=== PATIENT | female | born 1935 | race Asian ===

== ENCOUNTER 2018-11-09 21:19 | Inpatient (IN) | payer MEDICARE, OTHER ==
[~2018-11-09] VITALS: Ht 154.9 cm; Wt 41.7 kg
[~2018-11-09 21:19] MED LIST: POTASSIUM99 M3 PO; SEROQUEL50 MG ORAL; ZANTAC150 MG ORAL
[2018-11-09] MEDS ORDERED: NS 250 ML IV ONE (22:04)
--- NOTE | 2018-11-09 22:10 | NUR ---
ER Nurse Note: Pt BIBA 3 from home c/o ALOC, more altered than normal after dialysis. Patient is normally able to carry a conversation and able to walk. Since 1999 patient is non verbal and unable to get out of bed. BS 150. Patient had dialysis; BP became low on site. Pt a&ox0 but able to follow commands, and pain. BP on admission was 88/45, unable to talk, no skin breakdown. ERMD at pt side, will continue to monitor.
[2018-11-09 22:27] VITALS: BP 98/56
[2018-11-09 22:48] LABS: BASOPHILS % (AUTO) 1.1 % (0.0-2.0); EOSINOPHILS % (AUTO) 0.7 % (0.0-3.0); HEMATOCRIT 43.6 % (37.0-47.0); HEMOGLOBIN 13.5 G/DL (12.0-16.0); LYMPHOCYTES % (AUTO) 10.6 % (20.0-45.0); MEAN CORPUSCULAR VOLUME 106 FL (80-99); NEUTROPHILS % (AUTO) 76.6 % (45.0-75.0); PLATELET COUNT 104 K/UL (150-450); RED BLOOD COUNT 4.11 M/UL (4.20-5.40); RED CELL DISTRIBUTION WIDTH 17.5 % (11.6-14.8); WHITE BLOOD COUNT 6.8 K/UL (4.8-10.8)
[2018-11-09 22:50] VITALS: BP 110/64
[2018-11-09 22:53] LABS: ANION GAP 9 mmol/L (5-15); BLOOD UREA NITROGEN 44 mg/dL (7-18); CALCIUM 8.6 MG/DL (8.5-10.1); CARBON DIOXIDE 29 MMOL/L (21-32); CHLORIDE 97 MMOL/L (98-107); CREATININE 2.3 MG/DL (0.55-1.30); POTASSIUM 4.5 MMOL/L (3.5-5.1); SODIUM 135 MMOL/L (136-145)
[2018-11-09 23:08] LABS: ALBUMIN 2.7 G/DL (3.4-5.0); ALBUMIN/GLOBULIN RATIO 0.5 (1.0-2.7); ALKALINE PHOSPHATASE 252 U/L (46-116); ASPARTATE AMINO TRANSFERASE 20 U/L (15-37); BILIRUBIN,TOTAL 0.6 MG/DL (0.2-1.0); CREATINE KINASE 37 U/L (26-308)
[2018-11-09 23:30] LABS: ALANINE AMINOTRANSFERASE 5 U/L (12-78); CKMB 0.5 NG/ML (0.0-3.6)
--- NOTE | 2018-11-09 23:36 | NUR ---
ER Nurse Note: Family at bedside and primary nurse was informed pt is DNR. ERMD aware; will talk to family. Per family, family does not want a waldrop cath inserted; aware. Pt VSS, no signs of distress. All orders completed per ERMD orders. No skin breakdown. Will continue to montior..
[2018-11-09 23:50] VITALS: BP 102/58
[2018-11-10] VITALS (7 sets, daily range): BP systolic 90–148; BP diastolic 42–62
--- NOTE | 2018-11-10 01:30 | NUR ---
ER Nurse Note: Report given to DONNA Duarte in [place] for continuity of care. Pt VSS, no signs of distress, belongings given to family.
--- NOTE | 2018-11-10 02:20 | NUR ---
NURSE NOTES: Admitted patient awake,follows simple command,relatives at bedside.Admitting orders from Dr Mirza being carried out.
--- NOTE | 2018-11-10 02:41 | Emergency Room Report ---
History of Present Illness General Chief Complaint: Altered Mental Status Source: Patient Present Illness HPI 83-year-old female presents ED for evaluation. Brought in by EMS from home. Per family patient is more altered than baseline 1 day. History of dementia. Patient also has history of end-stage renal disease on dialysis. Had Dialysis Today. Upon arrival patient showing no signs of distress. Unable to provide any additional history at this time. Family at bedside states that patient is DO NOT RESUSCITATE, selective treatment. Normally goes [facility]. No other aggravating relieving factors. Denies any other associated symptoms Allergies: Coded Allergies: No Known Allergies (Unverified , 11/09/18) Patient History Past Medical History: GERD, dementia, psych hx, renal disease, dialysis Pertinent Family History: none Social History: Denies: smoking, alcohol use, drug use Last Menstrual Period: CHRIS Now: No Immunizations: UTD Reviewed Nursing Documentation: PMH: Agreed; PSxH: Agreed Nursing Documentation-PMH Past Medical History: No History, Except For Hx Gastrointestinal Problems: Yes - acid reflux, renal failure Hx Dialysis: Yes - M W F Hx Neurological Problems: Yes - dementia, anxiety Review of Systems All Other Systems: limited Physical Exam Vital Signs Date Time Temp Pulse Resp B/P (MAP) Pulse Ox O2 Delivery O2 Flow Rate FiO2 11/09/18 21:12 97.9 89 16 98/56 94 Room Air Sp02 EP Interpretation: reviewed, normal General Appearance: no apparent distress, GCS 15, non-toxic, lethargic Head: normocephalic Eyes: bilateral eye normal inspection, bilateral eye PERRL ENT: normal ENT inspection Neck: normal inspection Respiratory: chest non-tender, lungs clear, normal breath sounds, speaking full sentences Cardiovascular #1: regular rate, rhythm, no edema Gastrointestinal: normal bowel sounds, non tender, soft, non-distended, no guarding, no rebound Rectal: deferred Genitourinary: no CVA tenderness Musculoskeletal: normal inspection Neurologic: other - lethargic Psychiatric: other - lethargic Skin: normal inspection Lymphatic: normal inspection Medical Decision Making Diagnostic Impression: Primary Impression: ESRD (end stage renal disease) Additional Impression: Altered mental status Qualified Codes: R41.82 - Altered mental status, unspecified ER Course Hospital Course 83-year-old female presenting to ED with generalized weakness, hypotensive after dialysis Differential diagnoses include: Pneumonia, UTI, sepsis, dehydration, KS/ unstable angina Clinical course Patient placed on stretcher. 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 After initial history and physical, I ordered labs, IV fluids, EKG, chest x-ray, blood cultures, UA. Labs - BUN/Cr elevated, no leukocytosis, troponins negative EKG - NSR, no acute ischemic changes interpreted by me CXR - R sided effusion ? PNA Abx given. After small fluid bolus blood pressure improved. Family is at bedside and declined Zapata catheter for urine. Family provided documentation showing that patient is DO NOT RESUSCITATE, selective treatment Case discussed with Dr Mirza and they agreed to admit patient to their service for further care and support I feel this is a highly complex case requiring extensive working including EKG/ Rhythm strip, Xray/CT/US, Blood/urine lab work, repeat exams while in ED, and administration of strong opiates/narcotics for pain control, admission to hospital or close patient follow up. Diagnosis - ESRD on dialysis, AMS Patient admitted to floor in serious condition Labs Test 11/09/18 22:20 11/10/18 00:00 White Blood Count 6.8 K/UL (4.8-10.8) Red Blood Count 4.11 M/UL (4.20-5.40) Hemoglobin 13.5 G/DL (12.0-16.0) Hematocrit 43.6 % (37.0-47.0) Mean Corpuscular Volume 106 FL (80-99) Mean Corpuscular Hemoglobin 32.8 PG (27.0-31.0) Mean Corpuscular Hemoglobin Concent 30.9 G/DL (32.0-36.0) Red Cell Distribution Width 17.5 % (11.6-14.8) Platelet Count 104 K/UL (150-450) Mean Platelet Volume 6.2 FL (6.5-10.1) Neutrophils (%) (Auto) 76.6 % (45.0-75.0) Lymphocytes (%) (Auto) 10.6 % (20.0-45.0) Monocytes (%) (Auto) 11.0 % (1.0-10.0) Eosinophils (%) (Auto) 0.7 % (0.0-3.0) Basophils (%) (Auto) 1.1 % (0.0-2.0) Sodium Level 135 MMOL/L (136-145) Potassium Level 4.5 MMOL/L (3.5-5.1) Chloride Level 97 MMOL/L (98-107) Carbon Dioxide Level 29 MMOL/L (21-32) Anion Gap 9 mmol/L (5-15) Blood Urea Nitrogen 44 mg/dL (7-18) Creatinine 2.3 MG/DL (0.55-1.30) Estimat Glomerular Filtration Rate mL/min (>60) Glucose Level 121 MG/DL (74-106) Calcium Level 8.6 MG/DL (8.5-10.1) Total Bilirubin 0.6 MG/DL (0.2-1.0) Aspartate Amino Transf (AST/SGOT) 20 U/L (15-37) Alanine Aminotransferase (ALT/SGPT) 5 U/L (12-78) Alkaline Phosphatase 252 U/L (46-116) Total Creatine Kinase 37 U/L (26-308) Creatine Kinase MB 0.5 NG/ML (0.0-3.6) Creatine Kinase MB Relative Index 1.3 Troponin I 0.016 ng/mL (0.000-0.056) Pro-B-Type Natriuretic Peptide 91802 pg/mL (0-125) Total Protein 8.4 G/DL (6.4-8.2) Albumin 2.7 G/DL (3.4-5.0) Globulin 5.7 g/dL Albumin/Globulin Ratio 0.5 (1.0-2.7) Lactic Acid Level 1.70 mmol/L (0.4-2.0) EKG Diagnostic Results Rate: normal Rhythm: NSR ST Segments: no acute changes ASA given to the pt in ED: No Rhythm Strip Diag. Results EP Interpretation: yes Rhythm: NSR, no PVC's, no ectopy Chest X-Ray Diagnostic Results Chest X-Ray Diagnostic Results : Chest X-Ray Ordered: Yes # of Views/Limited/Complete: 1 View Indication: Other EP Interpretation: Yes Interpretation: no pneumothorax, other - R sided effusion Impression: Other - PNA/effusion Electronically Signed by: Electronically signed by Alberto Adames MD CT/MRI/US Diagnostic Results CT/MRI/US Diagnostic Results : Imaging Test Ordered: CT Head Impression old infarcts, no acute process Last Vital Signs Date Time Temp Pulse Resp B/P (MAP) Pulse Ox O2 Delivery O2 Flow Rate FiO2 11/10/18 00:50 97.7 75 18 116/62 99 Room Air Status: improved Disposition: ADMITTED INPATIENT Condition: Serious Referrals: JOYCE REDD MD (PCP) Alberto Adames MD Nov 10, 2018 02:41
[2018-11-10] MEDS: D5NS 1,000 ML IV SCH ×2 (03:37→21:38)
--- NOTE | 2018-11-10 07:27 | NUR ---
HAND-OFF: Report given to Giovanni Morris RN.
--- NOTE | 2018-11-10 08:02 | NUR ---
NURSE NOTES: Received patient from Chelita RN, patient is resting in bed, comfortable, call light within reach, bed is locked and in lowest position, no distress noted, will continue to monitor.
[2018-11-10] MEDS: Pantoprazole Inj IVP SCH (08:36)
[2018-11-10] MEDS: Donepezil 10mg tab ORAL SCH (08:36)
[2018-11-10] MEDS: Allopurinol 100mg Tab ORAL SCH (08:37)
--- NOTE | 2018-11-10 08:48 | History & Physical ---
History and Physical History & Physicial seen and examined. Full Dictation completed on 8:45 Priscilla Mirza MD Nov 10, 2018 08:48
--- NOTE | 2018-11-10 08:49 | General Progress Note ---
Assessment/Plan Assessment/Plan S, O: patient is lethargic, in no distress. Limited evaluation PHYSICAL EXAMINATION: HEENT: Atraumatic and normocephalic. CHEST: Diffuse bronchial breathing sounds. HEART: S1 and S2. Regular rate and rhythm. ABDOMEN: Soft. No organomegaly. MUSCULOSKELETAL: Atrophied musculature. NEUROLOGY: The patient is awake, alert, and oriented x1/2. LABORATORY DATA: Dated November 09, 2018 shows WBC 6.8, ASSESSMENT AND PLAN: 1. Acute encephalopathy. 2. Bilateral pulmonary effusion-bilateral pleural effusion. 3. End-stage renal disease, on hemodialysis. 4. Hyponatremia. 5. Thrombocytopenia. 6. Cachexia/severe malnourishement. 7. GI and DVT prophylaxis. PLAN OF CARE: 1- HD per Nephrology 2- Current management Subjective Allergies: Coded Allergies: No Known Allergies (Unverified , 11/09/18) Objective Last 24 Hour Vital Signs Date Time Temp Pulse Resp B/P (MAP) Pulse Ox O2 Delivery O2 Flow Rate FiO2 11/10/18 04:00 97.3 74 18 107/48 (67) 95 11/10/18 03:01 Room Air 11/10/18 01:30 97.5 80 18 90/42 91 Room Air 11/10/18 01:30 97.5 80 18 90/42 (58) 91 11/10/18 00:50 97.7 75 18 116/62 99 Room Air 11/09/18 23:50 78 16 102/58 96 Room Air 11/09/18 22:50 80 17 110/64 96 Room Air 11/09/18 22:27 97.9 81 16 98/56 94 Room Air 11/09/18 22:27 89 16 Room Air 11/09/18 21:12 97.9 89 16 98/56 94 Room Air Intake and Output 11/09/18 11/10/18 19:00 07:00 Intake Total 400 ml Balance 400 ml Intake IV Total 400 ml Laboratory Tests 11/09/18 22:20: White Blood Count 6.8, Red Blood Count 4.11L, Hemoglobin 13.5, Hematocrit 43.6, Mean Corpuscular Volume 106H, Mean Corpuscular Hemoglobin 32.8H, Mean Corpuscular Hemoglobin Concent 30.9L, Red Cell Distribution Width 17.5H, Platelet Count 104L, Mean Platelet Volume 6.2L, Neutrophils (%) (Auto) 76.6H, Lymphocytes (%) (Auto) 10.6L, Monocytes (%) (Auto) 11.0H, Eosinophils (%) (Auto ) 0.7, Basophils (%) (Auto) 1.1, Sodium Level 135L, Potassium Level 4.5, Chloride Level 97L, Carbon Dioxide Level 29, Anion Gap 9, Blood Urea Nitrogen 44H, Creatinine 2.3H, Estimat Glomerular Filtration Rate , Glucose Level 121H, Calcium Level 8.6, Total Bilirubin 0.6, Aspartate Amino Transf (AST/SGOT) 20, Alanine Aminotransferase (ALT/SGPT) 5L, Alkaline Phosphatase 252H, Total Creatine Kinase 37, Creatine Kinase MB 0.5, Creatine Kinase MB Relative Index 1.3, Troponin I 0.016, Pro-B-Type Natriuretic Peptide 73025C, Total Protein 8.4H , Albumin 2.7L, Globulin 5.7, Albumin/Globulin Ratio 0.5L 11/10/18 00:00: Lactic Acid Level 1.70 Height (Feet): 5 Height (Inches): 1.00 Weight (Pounds): 102 Priscilla Mirza MD Nov 10, 2018 08:49
[2018-11-10] MEDS ORDERED: Memantine 10mg tab ORAL SCH (09:00)
--- NOTE | 2018-11-10 11:55 | Diagnostic Imaging Report ---
Indications: Altered mental status Technique: Spiral acquisitions obtained through the brain. Angled axial and coronal 5 x 5 mm slices were reconstructed. Total dose length product 1414.7 mGycm. CTDI vol(s) 70.38 mGy. Dose reduction achieved using automated exposure control Comparison: None. Findings: There is marked age-related enlargement of the ventricles and extra axial CSF spaces. There is considerable periventricular deep white matter low-attenuation, consistent with chronic ischemic changes. There are bilateral basal ganglia old lacunar infarcts demonstrated. No acute intracranial hemorrhage or edema. No mass effect. No midline shift. Visualized orbits are unremarkable. The sinuses and mastoids are clear. The calvarium is intact. Impression: Chronic and age-related changes Negative for acute intracranial bleed or mass effect This agrees with the preliminary interpretation provided overnight by [facility] teleradiology service. The CT scanner at [facility] is accredited by the [employer] and the scans are performed using protocols designed to limit radiation exposure to as low as reasonably achievable to attain images of sufficient resolution adequate for diagnostic evaluation.
--- NOTE | 2018-11-10 13:10 | Consultation ---
History of Present Illness General Chief Complaint: Altered Mental Status Present Illness HPI 83-year-old female with hx of mmp and dementia with behavioral dist presents ED for evaluation. the pt has been behavioral issues and getting agitated. the pt daughter stated that since she has placed on seroquel the pt is doing better. the pt has waxing and waning of consciousness. the pt has memory impairment. Allergies: Coded Allergies: No Known Allergies (Unverified , 11/09/18) Medication History Scheduled Quetiapine Fumarate (Seroquel), Unknown Dose ORAL DAILY, (Reported) Ranitidine Hcl* (Zantac*), Unknown Dose ORAL DAILY, (Reported) Miscellaneous Medications Potassium Gluconate (Potassium), Unknown Dose PO, (Reported) Patient History Limited by: medical condition History Provided By: Family Member, Medical Record, PMD Healthcare decision maker Tasha Maxwell Resuscitation status Do Not Resuscitate Advanced Directive on File No Past Medical/Surgical History Past Medical/Surgical History: (1) ESRD (end stage renal disease) (2) Altered mental status (3) Dementia with behavioral disturbance (4) Acute metabolic encephalopathy Review of Systems Psychiatric: Reports: emotional problems, hallucinations Physical Exam General Appearance: no apparent distress, lethargic - waxing and waning Neurologic: disoriented, depressed affect Last 24 Hour Vital Signs Date Time Temp Pulse Resp B/P (MAP) Pulse Ox O2 Delivery O2 Flow Rate FiO2 11/10/18 12:00 98.6 71 20 114/53 (73) 99 11/10/18 08:00 97.3 71 18 110/50 (70) 100 11/10/18 08:00 Room Air 11/10/18 04:00 97.3 74 18 107/48 (67) 95 11/10/18 03:01 Room Air 11/10/18 01:30 97.5 80 18 90/42 91 Room Air 11/10/18 01:30 97.5 80 18 90/42 (58) 91 11/10/18 00:50 97.7 75 18 116/62 99 Room Air 11/09/18 23:50 78 16 102/58 96 Room Air 11/09/18 22:50 80 17 110/64 96 Room Air 11/09/18 22:27 97.9 81 16 98/56 94 Room Air 11/09/18 22:27 89 16 Room Air 11/09/18 21:12 97.9 89 16 98/56 94 Room Air Intake and Output 11/09/18 11/10/18 19:00 07:00 Intake Total 400 ml Balance 400 ml Intake IV Total 400 ml Laboratory Tests Test 11/09/18 22:20 11/10/18 00:00 White Blood Count 6.8 K/UL (4.8-10.8) Red Blood Count 4.11 M/UL (4.20-5.40) L Hemoglobin 13.5 G/DL (12.0-16.0) Hematocrit 43.6 % (37.0-47.0) Mean Corpuscular Volume 106 FL (80-99) H Mean Corpuscular Hemoglobin 32.8 PG (27.0-31.0) H Mean Corpuscular Hemoglobin Concent 30.9 G/DL (32.0-36.0) L Red Cell Distribution Width 17.5 % (11.6-14.8) H Platelet Count 104 K/UL (150-450) L Mean Platelet Volume 6.2 FL (6.5-10.1) L Neutrophils (%) (Auto) 76.6 % (45.0-75.0) H Lymphocytes (%) (Auto) 10.6 % (20.0-45.0) L Monocytes (%) (Auto) 11.0 % (1.0-10.0) H Eosinophils (%) (Auto) 0.7 % (0.0-3.0) Basophils (%) (Auto) 1.1 % (0.0-2.0) Sodium Level 135 MMOL/L (136-145) L Potassium Level 4.5 MMOL/L (3.5-5.1) Chloride Level 97 MMOL/L (98-107) L Carbon Dioxide Level 29 MMOL/L (21-32) Anion Gap 9 mmol/L (5-15) Blood Urea Nitrogen 44 mg/dL (7-18) H Creatinine 2.3 MG/DL (0.55-1.30) H Estimat Glomerular Filtration Rate mL/min (>60) Glucose Level 121 MG/DL (74-106) H Calcium Level 8.6 MG/DL (8.5-10.1) Total Bilirubin 0.6 MG/DL (0.2-1.0) Aspartate Amino Transf (AST/SGOT) 20 U/L (15-37) Alanine Aminotransferase (ALT/SGPT) 5 U/L (12-78) L Alkaline Phosphatase 252 U/L (46-116) H Total Creatine Kinase 37 U/L (26-308) Creatine Kinase MB 0.5 NG/ML (0.0-3.6) Creatine Kinase MB Relative Index 1.3 Troponin I 0.016 ng/mL (0.000-0.056) Pro-B-Type Natriuretic Peptide 79001 pg/mL (0-125) H Total Protein 8.4 G/DL (6.4-8.2) H Albumin 2.7 G/DL (3.4-5.0) L Globulin 5.7 g/dL Albumin/Globulin Ratio 0.5 (1.0-2.7) L Lactic Acid Level 1.70 mmol/L (0.4-2.0) Height (Feet): 5 Height (Inches): 1.00 Weight (Pounds): 102 Medications Current Medications Medications (Trade) Dose Ordered Sig/Ritika Route PRN Reason Start Time Stop Time Status Last Admin Dose Admin Acetaminophen (Tylenol) 650 mg Q4H PRN ORAL Mild Pain/Temp > 100.5 11/10/18 02:30 12/10/18 02:29 Allopurinol (Zyloprim) 100 mg SuTuThSa@0900 ORAL 11/10/18 09:00 12/10/18 08:59 Cinacalcet (Sensipar) 30 mg QHS ORAL 11/10/18 21:00 12/10/18 20:59 Dextrose/Sodium Chloride 1,000 ml @ 50 mls/hr Q20H IV 11/10/18 02:30 12/10/18 02:29 11/10/18 03:37 Donepezil HCl (Aricept) 10 mg SuTuThSa@0900 ORAL 11/10/18 09:00 12/10/18 08:59 EZETIMIBE (Zetia) 10 mg SuTuThSa@0900 ORAL 11/10/18 09:00 12/10/18 08:59 Levofloxacin 100 ml @ 100 mls/hr Q48H IVPB 11/12/18 00:30 11/19/18 00:29 Memantine (Namenda) 10 mg SuTuThSa@0900,1800 ORAL 11/10/18 09:00 12/10/18 08:59 Ondansetron HCl (Zofran) 4 mg Q6H PRN IVP Nausea & Vomiting 11/10/18 02:30 12/10/18 02:29 Pantoprazole (Protonix) 40 mg DAILY IVP 11/10/18 09:00 12/10/18 08:59 11/10/18 08:36 Quetiapine Fumarate (SEROquel) 25 mg QHS ORAL 11/10/18 21:00 12/10/18 20:59 Sertraline HCl (Zoloft) 50 mg MON-WED-WED ORAL 11/11/18 21:00 12/11/18 20:59 Assessment/Plan Problem List: (1) Dementia with behavioral disturbance ICD Codes: F03.91 - Unspecified dementia with behavioral disturbance SNOMED: 1733700277434 (2) Acute metabolic encephalopathy ICD Codes: G93.41 - Metabolic encephalopathy SNOMED: 70896735, [id number] Status: unchanged Assessment/Plan seroquel 25mg po qhs Zoloft 50mg po qam hold seroquel if the pt is lethargic dw both daughters in the room Nabor Stone MD Nov 10, 2018 13:10
--- NOTE | 2018-11-10 13:37 | Diagnostic Imaging Report ---
Indication: Altered mental status Technique: One view of the chest Comparison: none Findings: Hazy opacity of the right hemithorax likely reflects a pleural effusion. There may be some parenchymal consolidation as well. The left lung and pleural space are clear. The heart size is upper limits normal. The aorta is evaluated tortuous and calcified. Impression: Right-sided hazy opacity, likely pleural fluid, and/or parenchymal infiltrate. Correlate with clinical findings This agrees with the preliminary interpretation provided by the emergency room physician
--- NOTE | 2018-11-10 15:24 | NUR ---
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 97.9 HR 89 RR 16 B/P 98/56 BUN 44 CR 2.3 ALK PHOS 252 BNP 59582 CXR= RIGHT SIDED HAZY OPACITIES,PLEURAL FLUID LIKELY PARENCHYMAL INFILTRATES CT HEAD=NO ACUTE CHANGES IS: IV BOLUS NS X 250ML ADMITTED TO MED/SURG@ 0130 MED/SURG STATUS DCP RETURN HOME
--- NOTE | 2018-11-10 15:43 | Consultation ---
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 reason for hospitalization was unresponsiveness and low [place] ER: 83-year-old female presents ED for evaluation. Brought in by EMS from home. Per family patient is more altered than baseline 1 day. History of dementia. Patient also has history of end-stage renal disease on dialysis. Had Dialysis Today. Upon arrival patient showing no signs of distress. Unable to provide any additional history at this time. Family at bedside states that patient is DO NOT RESUSCITATE, selective treatment. Normally goes to [facility]. No other aggravating relieving factors. Denies any other associated symptoms Assessment/Plan ESRD M W Fr dialysis- 12 years on dialysis - has left arm fistula Encephalopathy Right basal lung pathology ? Aspiration Muscles wasted DNR Sugg: minimize or stop all mind altering meds as possible observe BP off dialysis slow hydrate 2D echo pulmonary toilet St eval discussed with Sukumar Tobias MD Nov 10, 2018 15:43
--- NOTE | 2018-11-10 16:00 | History and Physical Report ---
DATE OF ADMISSION: 11/09/2018 SOURCE OF INFORMATION: The patient and EMR. HISTORY OF PRESENT ILLNESS: The patient is a pleasant 83-year-old female with the history of end-stage renal disease. The patient presented with worsening of shortness of breath and being less responsive to the emergency room. Initial vital signs shows the low blood pressure. The patient has completed her scheduled hemodialysis sessions successfully. However, with no improvement presented to the emergency room. At the time of evaluation, the patient is delirious. However denies any nausea, vomiting, diarrhea, or constipation. There is no report of seizure activity or any abnormal bleeding. REVIEW OF SYSTEMS: All 14 elements of review of systems reviewed. Pertinent positives and negatives elements reviewed as above. ALLERGIES: NKDA. PAST SURGICAL HISTORY: Left upper arm AV/graft placement. PAST MEDICAL HISTORY: Including but not limited to hypertension, end-stage renal disease, psychiatric disorder. MEDICATIONS: Current hospital medications including Seroquel, sertraline, Namenda, Zetia, allopurinol. FAMILY HISTORY: Reviewed and noncontributory. SOCIAL HISTORY: The patient has three children. Roxie is the daughter with the power of corporate associate attorney. No reported alcohol abuse, illicit drug abuse, or smoking reported. IMAGING: Pending. PHYSICAL EXAMINATION: VITAL SIGNS: Blood pressure 100/60, temperature 98.2, pulse oximetry 94% on room air, respiratory rate 18. HEENT: Atraumatic and normocephalic. CHEST: Diffuse bronchial breathing sounds. HEART: S1 and S2. Regular rate and rhythm. ABDOMEN: Soft. No organomegaly. MUSCULOSKELETAL: Atrophied musculature. NEUROLOGY: The patient is awake, alert, and oriented x1/2. LABORATORY DATA: Dated November 09, 2018 shows WBC 6.8, hemoglobin of 13.5, platelet count of 104. Sodium 135, potassium 4.5, BUN , creatinine 2.3. AST and ALT of . BNP of 2100. ASSESSMENT AND PLAN: 1. Acute encephalopathy. 2. Bilateral pulmonary effusion-bilateral pleural effusion. 3. End-stage renal disease, on hemodialysis. 4. Hyponatremia. 5. Thrombocytopenia. 6. Cachexia/severe malnourishement. 7. GI and DVT prophylaxis. PLAN OF CARE: I will stop antipsychotic medications/sedatives. We will follow up with the neuro check on a q.4 basis. The case was discussed with the family at the bedside in detail. The patient's family requested hospice. However, I provided information and deferred that decisions after discussing with the power of the corporate associate attorney. Time of this dictation does not reflect the actual time of encounter. Priscilla Mirza M.D. DR: Tremaine JOB#: [id number] CC:
--- NOTE | 2018-11-10 16:02 | NUR ---
NURSE NOTES: RN received telephone orders from Dr. Mirza that patient should not be on Namenda or seroquel, orders discontinued per doctor order.
--- NOTE | 2018-11-10 18:56 | NUR ---
HAND-OFF: Report given to Chelita THOMPSON.NURSE NOTES:
--- NOTE | 2018-11-10 19:38 | NUR ---
NURSE NOTES: Received patient awake,resting in bed,no complaints,follows simple command,relatives at bedside.
[2018-11-10] MEDS: Sensipar 30mg Tab ORAL SCH (20:47)
[2018-11-11] VITALS: BP 132/64
[2018-11-11 03:44] VITALS: BP 147/61
--- NOTE | 2018-11-11 07:00 | NUR ---
HAND-OFF: Report given to Giovanni Morris RN.
--- NOTE | 2018-11-11 07:20 | NUR ---
NURSE NOTES: received patient from Chelita RN, patient is resting in bed and is more alert than yesterday, awaiting swallow evaluation, family at bedside, no distress noted, bed is locked and in lowest position, call light within reach, will continue to monitor.
[2018-11-11 08:00] VITALS: BP 140/77
[2018-11-11] MEDS: Pantoprazole Inj IVP SCH (08:49)
[2018-11-11 09:01] LABS: BASOPHILS % (AUTO) 0.9 % (0.0-2.0); EOSINOPHILS % (AUTO) 5.3 % (0.0-3.0); HEMATOCRIT 37.2 % (37.0-47.0); HEMOGLOBIN 11.4 G/DL (12.0-16.0); LYMPHOCYTES % (AUTO) 15.8 % (20.0-45.0); MEAN CORPUSCULAR VOLUME 105 FL (80-99); MONOCYTES % (AUTO) 9.2 % (1.0-10.0); NEUTROPHILS % (AUTO) 68.8 % (45.0-75.0); PLATELET COUNT 109 K/UL (150-450); RED BLOOD COUNT 3.53 M/UL (4.20-5.40); RED CELL DISTRIBUTION WIDTH 17.3 % (11.6-14.8); WHITE BLOOD COUNT 4.6 K/UL (4.8-10.8)
[2018-11-11 09:19] LABS: AMMONIA 16 umol/L (11-32)
[2018-11-11 09:36] LABS: ALANINE AMINOTRANSFERASE < 6 U/L (12-78); ALBUMIN 2.3 G/DL (3.4-5.0); ALBUMIN/GLOBULIN RATIO 0.4 (1.0-2.7); ALKALINE PHOSPHATASE 210 U/L (46-116); ANION GAP 7 mmol/L (5-15); ASPARTATE AMINO TRANSFERASE 15 U/L (15-37); BILIRUBIN,TOTAL 0.7 MG/DL (0.2-1.0); BLOOD UREA NITROGEN 63 mg/dL (7-18); CALCIUM 8.7 MG/DL (8.5-10.1); CARBON DIOXIDE 27 MMOL/L (21-32); CHLORIDE 104 MMOL/L (98-107); CHOLESTEROL 106 MG/DL (< 200); CREATINE KINASE 15 U/L (26-308); CREATININE 3.8 MG/DL (0.55-1.30); FERRITIN 1205 NG/ML (8-388); GAMMA GLUTAMYL TRANSPEPTIDASE 34 U/L (5-85); HDL CHOLESTEROL 43 MG/DL (40-60); PHOSPHORUS 3.2 MG/DL (2.5-4.9); POTASSIUM 4.4 MMOL/L (3.5-5.1); SODIUM 138 MMOL/L (136-145); TRIGLYCERIDES 77 MG/DL (30-150)
[2018-11-11 09:56] LABS: % IRON SATURATION 27 % (15-50); IRON 26 ug/dL (50-175); TOTAL IRON BINDING CAPACITY 95 ug/dL (250-450)
--- NOTE | 2018-11-11 10:15 | NUR ---
ST NOTE: BEDSIDE SWALLOW EVAL RECEIVED BEDSIDE SWALLOW EVAL CHART REVIEWED PRIOR THE EVALUATION PT IS A 83-YEAR-OLD FEMALE WHO WAS ADMITTED DUE TO AMS AND ESRD. 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 PER CXR: R-SIDED HAZY OPACITY, LIKELY PLEURAL FLUID, AND/OR PARENCHYMAL INFILTRATE. PLOF: PT LIVES AT HOME W/FAMILY. PER PT'S POLST: DNR, SELECTIVE TX, OKAY FOR LONG-TERM ARTIFICIAL NUTRITION, INCLUDING FEEDING TUBES. HOWEVER, WHEN DISCUSSED WITH PT'S DAUGHTER, RE: TUBE FEEDING. PER DAUGHTER, NO ARTIFICIAL NUTRITION, INCLUDING FEEDING TUBES PER PT'S DAUGHTER, VIDEOSWALLOW STUDY WAS COMPLETED AT [facility] A YEAR AGO(10/2017). NO ASPIRATION WAS NOTED BUT HAS HIGH RISK. DIET RECOMMENDED MECH SOFT(CHOPPED) WITH NECTAR THICK LIQUIDS, OKAY TO ALTERNATE WITH THIN LIQUIDS VIA TSP ONLY. CURRENT STATUS: PT SEEN AT BEDSIDE IN AM. ALERT, COOPERATIVE, FOLLOWS SIMPLE DIRECTIONS, PT'S DAUGHTERS ARE ON THE BEDSIDE. PER PT'S DAUGHTER, PT HAS BEEN COUGHING DURING MEALTIME. GIVEN PO TRIALS: THIN(TSP), NECTAR THICK(TSPX2) AND PUREE(1/2 TSP) INITIAL IMPRESSION: PROBABLE MODERATE OR WORSENED OROPHARYNGEAL DYSPHAGIA PT HAS UPPER AND LOWER DENTURES. MILD TO MODERATE ORAL TRANSIT TIME AND OROPHARYNGEAL TRANSIT TIME, WEAK AND SLOW LARYNGEAL ELEVATION, DELAYED COUGH WAS NOTED WITH PUREED. HAS HIGH (SILENT) ASPIRATION RISK DUE TO PT'S OVERALL WEAKNESS. RECOMMENDATIONS: 1. CONSERVATIVELY, VIDEOSWALLOW STUDY PRIOR ANY PO DIET. 2. IF PO IS GIVEN FOR QUALITY OF LIFE, CONSIDER LIQUIFIED PUREED, LIKE NECTAR THICK SOUP CONSISTENCY WITH NECTAR THICK LIQUIDS AT TSP LEVEL 3. HOLD PO FOR NOW AND PENDING FOR MD'S APPROVAL FOR VIDEOSWALLOW STUDY. D/W PT'S DAUGHTERS AND RNSUNDAR.
--- NOTE | 2018-11-11 11:53 | Diagnostic Imaging Report ---
Indication: Dyspnea Comparison: 11/09/2018 2 views of the chest obtained. Findings: Interstitial opacities are prominent bilaterally. The heart is enlarged. Aorta is moderately calcified. Bones are osteopenic. IMPRESSION: Interstitial opacities likely due to mild interstitial edema or CHF. Correlate clinically
[2018-11-11 12:00] VITALS: BP 146/67
--- NOTE | 2018-11-11 12:41 | General Progress Note ---
Assessment/Plan Problem List: (1) Dementia with behavioral disturbance ICD Codes: F03.91 - Unspecified dementia with behavioral disturbance SNOMED: 2621611449964 (2) Acute metabolic encephalopathy ICD Codes: G93.41 - Metabolic encephalopathy SNOMED: 69643102, 829365171 Assessment/Plan seroquel 25mg po qhs Zoloft 50mg po qam hold seroquel if the pt is lethargic dw both daughters in the room Subjective Neurologic/Psychiatric: Reports: anxiety, depressed, emotional problems Allergies: Coded Allergies: No Known Allergies (Unverified , 11/09/18) Subjective the pt was awake all night the daughter asked to resume her medication the pt sleepy during the day agitated and awake at night Objective Last 24 Hour Vital Signs Date Time Temp Pulse Resp B/P (MAP) Pulse Ox O2 Delivery O2 Flow Rate FiO2 11/11/18 08:30 Room Air 11/11/18 08:00 97.5 72 20 140/77 (98) 95 11/11/18 03:44 97.2 72 18 147/61 (89) 98 11/11/18 00:00 97.6 76 18 132/64 (86) 99 11/10/18 20:14 Room Air 11/10/18 20:04 97.9 76 18 124/61 (82) 99 11/10/18 16:00 97.1 75 20 148/57 (87) 97 Intake and Output 11/10/18 11/11/18 19:00 07:00 Intake Total 50 ml 575 ml Output Total 800 ml Balance -750 ml 575 ml Intake IV Total 50 ml 575 ml Output Urine Total 800 ml # Voids 1 Laboratory Tests 11/10/18 16:35: C-Reactive Protein, Quantitative < 0.4 11/11/18 08:30: White Blood Count 4.6L, Red Blood Count 3.53L, Hemoglobin 11.4L, Hematocrit 37.2 , Mean Corpuscular Volume 105H, Mean Corpuscular Hemoglobin 32.3H, Mean Corpuscular Hemoglobin Concent 30.6L, Red Cell Distribution Width 17.3H, Platelet Count 109L, Mean Platelet Volume 5.8L, Neutrophils (%) (Auto) 68.8, Lymphocytes (%) (Auto) 15.8L, Monocytes (%) (Auto) 9.2, Eosinophils (%) (Auto) 5.3H, Basophils (%) (Auto) 0.9, Sodium Level 138, Potassium Level 4.4, Chloride Level 104, Carbon Dioxide Level 27, Anion Gap 7, Blood Urea Nitrogen 63H, Creatinine 3.8#H, Estimat Glomerular Filtration Rate , Glucose Level 87, Uric Acid 3.1, Calcium Level 8.7, Phosphorus Level 3.2, Magnesium Level 2.0, Iron Level 26L, Total Iron Binding Capacity 95L, Percent Iron Saturation 27, Unsaturated Iron Binding 69L, Ferritin 1205H, Total Bilirubin 0.7, Gamma Glutamyl Transpeptidase 34, Aspartate Amino Transf (AST/SGOT) 15, Alanine Aminotransferase (ALT/SGPT) < 6L, Alkaline Phosphatase 210H, Ammonia 16, Total Creatine Kinase 15L, Troponin I 0.006, Pro-B-Type Natriuretic Peptide 26341Y, Total Protein 7.5, Albumin 2.3L, Globulin 5.2, Albumin/Globulin Ratio 0.4L, Triglycerides Level 77, Cholesterol Level 106, LDL Cholesterol 55, HDL Cholesterol 43, Cholesterol/HDL Ratio 2.5L, Vitamin B12 Level 749, Folate 9.3, Thyroid Stimulating Hormone (TSH) 1.867, Cortisol AM Sample [Pending] Height (Feet): 5 Height (Inches): 1.00 Weight (Pounds): 102 General Appearance: alert, confused, moderate distress, agitated Nabor Stone MD Nov 11, 2018 12:41
--- NOTE | 2018-11-11 14:59 | General Progress Note ---
Assessment/Plan Assessment/Plan S: Awake O: followup with commands. appears comfortable. Daughters at bed side PHYSICAL EXAMINATION:HEENT: Atraumatic and normocephalic. CHEST: Diffuse bronchial breathing sounds. HEART: S1 and S2. Regular rate and rhythm. ABDOMEN: Soft. No organomegaly. MUSCULOSKELETAL: Atrophied musculature. NEUROLOGY: The patient is awake, alert, and oriented x1/2. Meds: reviewed, including Seraquel ASSESSMENT AND PLAN: 1. Acute encephalopathy. 2. Bilateral pulmonary effusion-bilateral pleural effusion, stable 3. End-stage renal disease, on hemodialysis. 4. Hyponatremia. 5. Thrombocytopenia. 6. Cachexia/severe malnourishment. 7. GI and DVT prophylaxis. PLAN OF CARE: Will hold Seraquel Ok to c/w remainder of psych med, at Dr Stone's Discretion HD, per Dr Varela Family debating over pros/cons of Hospice care Ok to c/w HD for now Subjective Allergies: Coded Allergies: No Known Allergies (Unverified , 11/09/18) Objective Last 24 Hour Vital Signs Date Time Temp Pulse Resp B/P (MAP) Pulse Ox O2 Delivery O2 Flow Rate FiO2 11/11/18 12:00 97.1 88 20 146/67 (93) 98 11/11/18 08:30 Room Air 11/11/18 08:00 97.5 72 20 140/77 (98) 95 11/11/18 03:44 97.2 72 18 147/61 (89) 98 11/11/18 00:00 97.6 76 18 132/64 (86) 99 11/10/18 20:14 Room Air 11/10/18 20:04 97.9 76 18 124/61 (82) 99 11/10/18 16:00 97.1 75 20 148/57 (87) 97 Intake and Output 11/10/18 11/11/18 19:00 07:00 Intake Total 50 ml 575 ml Output Total 800 ml Balance -750 ml 575 ml Intake IV Total 50 ml 575 ml Output Urine Total 800 ml # Voids 1 Laboratory Tests 11/10/18 16:35: C-Reactive Protein, Quantitative < 0.4 11/11/18 08:30: White Blood Count 4.6L, Red Blood Count 3.53L, Hemoglobin 11.4L, Hematocrit 37.2 , Mean Corpuscular Volume 105H, Mean Corpuscular Hemoglobin 32.3H, Mean Corpuscular Hemoglobin Concent 30.6L, Red Cell Distribution Width 17.3H, Platelet Count 109L, Mean Platelet Volume 5.8L, Neutrophils (%) (Auto) 68.8, Lymphocytes (%) (Auto) 15.8L, Monocytes (%) (Auto) 9.2, Eosinophils (%) (Auto) 5.3H, Basophils (%) (Auto) 0.9, Sodium Level 138, Potassium Level 4.4, Chloride Level 104, Carbon Dioxide Level 27, Anion Gap 7, Blood Urea Nitrogen 63H, Creatinine 3.8#H, Estimat Glomerular Filtration Rate , Glucose Level 87, Uric Acid 3.1, Calcium Level 8.7, Phosphorus Level 3.2, Magnesium Level 2.0, Iron Level 26L, Total Iron Binding Capacity 95L, Percent Iron Saturation 27, Unsaturated Iron Binding 69L, Ferritin 1205H, Total Bilirubin 0.7, Gamma Glutamyl Transpeptidase 34, Aspartate Amino Transf (AST/SGOT) 15, Alanine Aminotransferase (ALT/SGPT) < 6L, Alkaline Phosphatase 210H, Ammonia 16, Total Creatine Kinase 15L, Troponin I 0.006, Pro-B-Type Natriuretic Peptide 49098Q, Total Protein 7.5, Albumin 2.3L, Globulin 5.2, Albumin/Globulin Ratio 0.4L, Triglycerides Level 77, Cholesterol Level 106, LDL Cholesterol 55, HDL Cholesterol 43, Cholesterol/HDL Ratio 2.5L, Vitamin B12 Level 749, Folate 9.3, Thyroid Stimulating Hormone (TSH) 1.867, Cortisol AM Sample 14.2 Height (Feet): 5 Height (Inches): 1.00 Weight (Pounds): 102 Priscilla Mirza MD Nov 11, 2018 14:59
--- NOTE | 2018-11-11 15:16 | NUR ---
ST NOTE: MODIFIED BARIUM SWALLOW STUDY COMPLETED MODIFIED BARIUM SWALLOW STUDY FULL REPORT WILL FOLLOW UNDER ST NOTE IN CARE ACTIVITY PT ALERT, COOPERATIVE, FOLLOWS SIMPLE DIRECTIONS INCONSISTENTLY, PT'S DAUGHTERS PRESENTED. GIVEN PO TRIALS: THIN(TSPX2/MED CUP/STRAW-ONE SIP), NECTAR THICK(TSP/MED CUP), HONEY THICK(TSP) AND PUDDING(1/2 TSP), H2O LIQUID WASH(1/2 TSP) PT PRESENTS WITH MODERATELY SEVERE(SIGNIFICANT) OROPHARYNGEAL DYSPHAGIA CHARACTERIZED BY INCREASED AND SLOW ORAL TRANSIT TIME(VERY SLOW TONGUE MOTION) AND INCREASED OROPHARYNGEAL TRANSIT TIME DUE TO SENSORIMOTOR DEFICITS. TRACE DEEP LARYNGEAL PENETRATION(LP) TO PROBABLE SILENT ASPIRATION WITH THIN(STRAW) DURING SWALLOW, CONTACTED THE VOCAL FOLD, NOT EJECTED, POSSIBLY BELOW THE VOCAL FOLDS, NOT EJECTED, SECONDARY TO DELAYED SWALLOW, REDUCED TONGUE BASE RETRACTION, REDUCED/INADEQUATE HYO-LARYNGEAL ELEVATION, REDUCED LARYNGEAL VESTIBULE CLOSURE. TRACE LARYNGEAL PENETRATION (LP) WITH THIN(TSP/MED CUP), NECTAR THICK, HONEY THICK AND PUDDING DUE TO THE SAME DEFICITS MENTIONED ABOVE. MILD TO MODERATE TONGUE BASE AND VALLECULAR RESIDUE, WORSE WITH HONEY THICK AND PUDDING, DUE TO REDUCED BASE OF TONGUE RETRACTION. MILD PYRIFORM SINUSES RESIDUE WAS ALSO MARKED DUE TO REDUCED HYO-LARYNGEAL ELEVATION. NO SIGNIFICANT ASPIRATION WITH NECTAR THICK, HONEY THICK AND PUDDING BUT HAS HIGH CHRONIC ASPIRATION RISK DUE TO OVERALL PHARYNGEAL WEAKNESS(ALSO POOR PHARYNGEAL SENSATION) AND OVERALL WEAKNESS. PT BENEFITS FROM REPEAT SWALLOWS(2 TO 3 TIMES IF ABLE PT SEEMS HAVING DIFFICULTY TO TRIGGER DRY SWALLOW RESPONSE), ALLOW TIMES, BREATH HOLD WITH EFFORTFUL, NO STRAW AND H2O LIQUID WASH. DISCUSSED WITH PT'S DAUGHTERS THOROUGHLY RE: RESULTS AND RECOMMENDATIONS AND EXPLAINED THAT PT IS AT VERY HIGH RISK FOR CHRONIC ASPIRATION, MALNUTRITION AND DEHYDRATION. PT WOULD BE A GOOD CANDIDATE FOR LONG-TERM NONORAL FEEDING MEANS(PEG). PER DAUGHTERS, REFUSED PEG(HER MOTHER'S WISH). RECOMMENDATIONS: 1. PO SHOULD BE GIVEN FOR QUALITY OF LIFE (COMFORT FEEDING) DIET IS RECOMMENDED RENAL LIQUIFIED PUREED, LIKE NECTAR THICK SOUP CONSISTENCY WITH NECTAR THICK LIQUIDS DIET AT 1/2 TEASPOON LEVEL 2. STRICT ASPIRATION PRECAUTIONS WITH 1TO1 FEEDING. 3. HIGH CALORIE SUPPLEMENT 4. CONSIDER COMFORT MEASURE. D/W PT'S DAUGHTER, INFORMED MD, DR. FIELDS AND DR. SANDRA, MDs APPROVED FOR DIET RECOMMENDATION. RNSUNDAR, NOTIFIED. POSTED ASPIRATION PRECAUTIONS SIGN. EDUCATED PT'S DAUGHTER RE: ASPIRATION PRECAUTIONS AND SWALLOW TECHNIQUES.
[2018-11-11 16:00] VITALS: BP 148/61
--- NOTE | 2018-11-11 16:15 | Nephrology Progress Note ---
Assessment/Plan Problem List: (1) ESRD (end stage renal disease) (2) Acute metabolic encephalopathy (3) Right pulmonary infiltrate on CXR Assessment ESRD M W Fr dialysis- 12 years on dialysis - has left arm fistula Encephalopathy Right basal lung pathology ? Aspiration Muscles wasted DNR Plan family considering Hospice meanwhile want dialysis to continue minimize or stop all mind altering meds as possible observe BP off dialysis slow hydrate 2D echo pulmonary toilet St eval discussed with Dr Mirza Objective Objective Last 24 Hour Vital Signs Date Time Temp Pulse Resp B/P (MAP) Pulse Ox O2 Delivery O2 Flow Rate FiO2 11/11/18 12:00 97.1 88 20 146/67 (93) 98 11/11/18 08:30 Room Air 11/11/18 08:00 97.5 72 20 140/77 (98) 95 11/11/18 03:44 97.2 72 18 147/61 (89) 98 11/11/18 00:00 97.6 76 18 132/64 (86) 99 11/10/18 20:14 Room Air 11/10/18 20:04 97.9 76 18 124/61 (82) 99 Intake and Output 11/10/18 11/11/18 19:00 07:00 Intake Total 50 ml 575 ml Output Total 800 ml Balance -750 ml 575 ml Intake IV Total 50 ml 575 ml Output Urine Total 800 ml # Voids 1 Laboratory Tests 11/10/18 16:35: C-Reactive Protein, Quantitative < 0.4 11/11/18 08:30: White Blood Count 4.6L, Red Blood Count 3.53L, Hemoglobin 11.4L, Hematocrit 37.2 , Mean Corpuscular Volume 105H, Mean Corpuscular Hemoglobin 32.3H, Mean Corpuscular Hemoglobin Concent 30.6L, Red Cell Distribution Width 17.3H, Platelet Count 109L, Mean Platelet Volume 5.8L, Neutrophils (%) (Auto) 68.8, Lymphocytes (%) (Auto) 15.8L, Monocytes (%) (Auto) 9.2, Eosinophils (%) (Auto) 5.3H, Basophils (%) (Auto) 0.9, Sodium Level 138, Potassium Level 4.4, Chloride Level 104, Carbon Dioxide Level 27, Anion Gap 7, Blood Urea Nitrogen 63H, Creatinine 3.8#H, Estimat Glomerular Filtration Rate , Glucose Level 87, Uric Acid 3.1, Calcium Level 8.7, Phosphorus Level 3.2, Magnesium Level 2.0, Iron Level 26L, Total Iron Binding Capacity 95L, Percent Iron Saturation 27, Unsaturated Iron Binding 69L, Ferritin 1205H, Total Bilirubin 0.7, Gamma Glutamyl Transpeptidase 34, Aspartate Amino Transf (AST/SGOT) 15, Alanine Aminotransferase (ALT/SGPT) < 6L, Alkaline Phosphatase 210H, Ammonia 16, Total Creatine Kinase 15L, Troponin I 0.006, Pro-B-Type Natriuretic Peptide 37804T, Total Protein 7.5, Albumin 2.3L, Globulin 5.2, Albumin/Globulin Ratio 0.4L, Triglycerides Level 77, Cholesterol Level 106, LDL Cholesterol 55, HDL Cholesterol 43, Cholesterol/HDL Ratio 2.5L, Vitamin B12 Level 749, Folate 9.3, Thyroid Stimulating Hormone (TSH) 1.867, Cortisol AM Sample 14.2 Height (Feet): 5 Height (Inches): 1.00 Weight (Pounds): 102 Sukumar Varela MD Nov 11, 2018 16:15
[2018-11-11] MEDS: D5NS 1,000 ML IV SCH (17:43)
--- NOTE | 2018-11-11 19:35 | NUR ---
CASE MANAGEMENT: REVIEW SI: AMS . ESRD ON HD T 97.2 HR 89 RR 18 BP 148/61 SAT 98% ROOM AIR WBC 4.6 BUN 63 CR 3.87 BNP 33413 IS: LEVOFLOXACIN IV Q48HR PROTONIX IV QD D5 NS IVF @50ML/HR MED/SURG STATUS DCP: PATIENT IS FROM HOME
--- NOTE | 2018-11-11 19:54 | NUR ---
HAND-OFF: Report given to Ny THOMPSON, endorsed that [facility] dialysis has been contacted and conformed for dialysis tomorrow 11/12/18.
[2018-11-11 20:00] VITALS: BP 152/61
[2018-11-11] MEDS: Sertraline 50mg tab ORAL SCH (22:07)
[2018-11-11] MEDS: Sensipar 30mg Tab ORAL SCH (22:07)
[2018-11-12] VITALS: BP 148/59
[2018-11-12 04:00] VITALS: BP 146/72
--- NOTE | 2018-11-12 07:23 | NUR ---
HAND-OFF: Report given to DONNA Mccarthy.
--- NOTE | 2018-11-12 07:31 | NUR ---
NURSE NOTES: received report from DONNA Fry. patient in bed. alert, verbally responsive. no respiratory distress noted. no c/o pain at this time.IV intact. bed in the lowest position. alarm on. call light within reach, will continue to monitor.
[2018-11-12 08:00] VITALS: BP 153/62
[2018-11-12] MEDS: Allopurinol 100mg Tab ORAL SCH (08:42)
[2018-11-12] MEDS: Donepezil 10mg tab ORAL SCH (08:43)
[2018-11-12] MEDS: Pantoprazole Inj IVP SCH (08:43)
--- NOTE | 2018-11-12 09:50 | General Progress Note ---
Assessment/Plan Assessment/Plan S: Awake O: followup with commands. appears comfortable. Daughters at bed side PHYSICAL EXAMINATION:HEENT: Atraumatic and normocephalic. CHEST: Diffuse bronchial breathing sounds. HEART: S1 and S2. Regular rate and rhythm. ABDOMEN: Soft. No organomegaly. MUSCULOSKELETAL: Atrophied musculature. NEUROLOGY: The patient is awake, alert, and oriented x1/2. Meds: reviewed, including Seraquel ASSESSMENT AND PLAN: 1. Acute encephalopathy: Resolved 2. Bilateral pulmonary effusion-bilateral pleural effusion, stable, likely Volume over load, less likely infection process 3. End-stage renal disease, on hemodialysis. 4. Hyponatremia. 5. Thrombocytopenia. 6. Cachexia/severe malnourishment. 7. GI and DVT prophylaxis. PLAN OF CARE: Resume Seraquel, per psych input HD, per Dr Varela Family debating over pros/cons of Hospice care Ok to c/w HD for now Subjective Allergies: Coded Allergies: No Known Allergies (Unverified , 11/09/18) Objective Last 24 Hour Vital Signs Date Time Temp Pulse Resp B/P (MAP) Pulse Ox O2 Delivery O2 Flow Rate FiO2 11/12/18 04:00 97.6 77 18 146/72 (96) 97 11/12/18 00:00 98.0 77 17 148/59 (88) 97 11/11/18 21:00 Room Air 11/11/18 20:00 97.5 85 17 152/61 (91) 95 11/11/18 16:00 97.2 89 18 148/61 (90) 98 11/11/18 12:00 97.1 88 20 146/67 (93) 98 Intake and Output 11/11/18 11/12/18 18:59 06:59 Intake Total 300 ml 575 ml Output Total 400 ml Balance -100 ml 575 ml Intake Oral 300 ml IV Total 575 ml Output Urine Total 400 ml Height (Feet): 5 Height (Inches): 1.00 Weight (Pounds): 102 Priscilla Mirza MD Nov 12, 2018 09:50
[2018-11-12 12:00] VITALS: BP 160/62
[2018-11-12] MEDS: D5NS 1,000 ML IV SCH (14:47)
--- NOTE | 2018-11-12 15:12 | Nephrology Progress Note ---
Assessment/Plan Problem List: (1) ESRD (end stage renal disease) (2) Acute metabolic encephalopathy (3) Right pulmonary infiltrate on CXR Assessment ESRD M W Fr dialysis- 12 years on dialysis - has left arm fistula Encephalopathy Right basal lung pathology ? Aspiration Muscles wasted DNR Plan family considering Hospice meanwhile want dialysis to continue: on HD today minimize or stop all mind altering meds as possible observe BP off dialysis slow hydrate 2D echo pulmonary toilet St eval discussed with Dr Mirza Subjective ROS Limited/Unobtainable: No Constitutional: Reports: malaise Objective Objective Last 24 Hour Vital Signs Date Time Temp Pulse Resp B/P (MAP) Pulse Ox O2 Delivery O2 Flow Rate FiO2 11/12/18 09:00 Room Air 11/12/18 08:00 97.9 76 18 153/62 (92) 99 11/12/18 04:00 97.6 77 18 146/72 (96) 97 11/12/18 00:00 98.0 77 17 148/59 (88) 97 11/11/18 21:00 Room Air 11/11/18 20:00 97.5 85 17 152/61 (91) 95 11/11/18 16:00 97.2 89 18 148/61 (90) 98 Intake and Output 11/11/18 11/12/18 19:00 07:00 Intake Total 350 ml 525 ml Output Total 400 ml Balance -50 ml 525 ml Intake Oral 300 ml IV Total 50 ml 525 ml Output Urine Total 400 ml Height (Feet): 5 Height (Inches): 1.00 Weight (Pounds): 102 General Appearance: no apparent distress Objective no change Sukumar Varela MD Nov 12, 2018 15:12
[2018-11-12 16:00] VITALS: BP 136/69
--- NOTE | 2018-11-12 17:51 | NUR ---
NURSE NOTES: patient family members want patient to take seroquel at night since she has been taking at home every night. notified dr. hamilton and received order to continue seroquel 25mg tab po at bed time. order noted and carried out.
--- NOTE | 2018-11-12 19:30 | NUR ---
HAND-OFF: Report given to DONNA Arriaga.
--- NOTE | 2018-11-12 19:41 | NUR ---
NURSE NOTES: Received report from DONNA Mccarthy. On room air, no signs of distress or labored breathing. IV intact, patent, and infusing IV fluids. Family at the bedside. Bed in lowest position with call light in reach. Will continue with plan of care.
[2018-11-12 20:00] VITALS: BP 113/69
[2018-11-12] MEDS: Sensipar 30mg Tab ORAL SCH (21:13)
[2018-11-13] VITALS (8 sets, daily range): BP systolic 132–165; BP diastolic 54–84
--- NOTE | 2018-11-13 07:43 | NUR ---
HAND-OFF: Report given to TRACIE Watson.
--- NOTE | 2018-11-13 07:45 | NUR ---
NURSE NOTES: patient is A/A/Ox4, in bed, calm and comfortable. IVF infusing well. AV shunt on LAUREL patent, bruit present. SCD's applied BLE. No acute resp distress noted. family @ bedside. kept bed in the lowest position. siderails are up x3, call light is within reach. will cont to monitor.
[2018-11-13] MEDS: Allopurinol 100mg Tab ORAL SCH (09:13)
[2018-11-13] MEDS: Donepezil 10mg tab ORAL SCH (09:13)
[2018-11-13] MEDS: D5NS 1,000 ML IV SCH (09:14)
[2018-11-13] MEDS: Pantoprazole Inj IVP SCH (09:29)
--- NOTE | 2018-11-13 10:19 | NUR ---
NURSE NOTES: Received patient awake, with no sob. Son at bedside. IV line intact. with no bleeding. Denies any pain at this time. Bed in lowest position. All needs attended. Will cont to monitor.
[2018-11-13] MEDS ORDERED: HydrALAZINE 10mg Tab ORAL PRN (17:00)
--- NOTE | 2018-11-13 17:03 | Nephrology Progress Note ---
Assessment/Plan Problem List: (1) ESRD (end stage renal disease) (2) Acute metabolic encephalopathy (3) Right pulmonary infiltrate on CXR Assessment ESRD M W Fr dialysis- 12 years on dialysis - has left arm fistula Encephalopathy Right basal lung pathology ? Aspiration Muscles wasted DNR Plan family considering Hospice meanwhile want dialysis to continue: HD 11/12 next 11/14 PRN Hydralazine for BP stop IV minimize or stop all mind altering meds as possible observe BP off dialysis slow hydrate 2D echo pulmonary toilet St eval discussed with Dr Mirza Subjective ROS Limited/Unobtainable: No Constitutional: Reports: other - more awake Objective Objective Last 24 Hour Vital Signs Date Time Temp Pulse Resp B/P (MAP) Pulse Ox O2 Delivery O2 Flow Rate FiO2 11/13/18 16:30 83 159/64 (95) 11/13/18 16:00 98.4 83 23 165/73 (103) 100 11/13/18 12:00 98.3 79 21 132/68 (89) 100 11/13/18 09:00 Room Air 11/13/18 08:15 149/54 (85) 11/13/18 08:00 97.7 74 22 161/64 (96) 97 11/13/18 04:00 98.3 75 16 147/62 (90) 96 11/13/18 00:00 98.5 79 17 149/84 (105) 97 11/12/18 21:00 Room Air 11/12/18 20:00 98.0 79 18 113/69 (84) 95 Intake and Output 11/12/18 11/13/18 19:00 07:00 Intake Total 440 ml Balance 440 ml Intake Oral 240 ml IV Total 200 ml Height (Feet): 5 Height (Inches): 1.00 Weight (Pounds): 102 General Appearance: no apparent distress Cardiovascular: normal rate Respiratory/Chest: decreased breath sounds Abdomen: soft Objective no change Sukumar Varela MD Nov 13, 2018 17:02
--- NOTE | 2018-11-13 17:54 | NUR ---
NURSE NOTES: called [facility] for HD tomorrow 11/14, spoke with LASHELL. awaits for confirmation. Addendum: 11/13/18 at 1833 by CHRISTINA ROSE LVN Deangelo from [facility] called back to confirm.
--- NOTE | 2018-11-13 18:54 | General Progress Note ---
Assessment/Plan Assessment/Plan S: Awake O: followup with commands. appears comfortable. Daughters at bed side PHYSICAL EXAMINATION:HEENT: Atraumatic and normocephalic. CHEST: Diffuse bronchial breathing sounds. HEART: S1 and S2. Regular rate and rhythm. ABDOMEN: Soft. No organomegaly. MUSCULOSKELETAL: Atrophied musculature. NEUROLOGY: The patient is awake, alert, and oriented x1/2. Meds: reviewed, including Seraquel ASSESSMENT AND PLAN: 1. Acute encephalopathy: Resolved 2. Bilateral pulmonary effusion-bilateral pleural effusion, stable, likely Volume over load, less likely infection process 3. End-stage renal disease, on hemodialysis. 4. Hyponatremia. 5. Thrombocytopenia. 6. Cachexia/severe malnourishment. 7. GI and DVT prophylaxis. 8. HTN PLAN OF CARE: Resume Seraquel, per psych input HD, per Dr Varela Family debating over pros/cons of Hospice care Ok to c/w HD for now Start Norvasc 2.5 mg daily Subjective Allergies: Coded Allergies: No Known Allergies (Unverified , 11/09/18) Objective Last 24 Hour Vital Signs Date Time Temp Pulse Resp B/P (MAP) Pulse Ox O2 Delivery O2 Flow Rate FiO2 11/13/18 16:30 83 159/64 (95) 11/13/18 16:00 98.4 83 23 165/73 (103) 100 11/13/18 12:00 98.3 79 21 132/68 (89) 100 11/13/18 09:00 Room Air 11/13/18 08:15 149/54 (85) 11/13/18 08:00 97.7 74 22 161/64 (96) 97 11/13/18 04:00 98.3 75 16 147/62 (90) 96 11/13/18 00:00 98.5 79 17 149/84 (105) 97 11/12/18 21:00 Room Air 11/12/18 20:00 98.0 79 18 113/69 (84) 95 Intake and Output 11/12/18 11/13/18 19:00 07:00 Intake Total 440 ml Balance 440 ml Intake Oral 240 ml IV Total 200 ml Height (Feet): 5 Height (Inches): 1.00 Weight (Pounds): 102 Priscilla Mirza MD Nov 13, 2018 18:54
--- NOTE | 2018-11-13 19:00 | NUR ---
HAND-OFF: Report given to Yuni.
--- NOTE | 2018-11-13 19:30 | NUR ---
NURSE NOTES: RECEIVED PATIENT LYING IN BED, AWAKE, ALERT/ORIENTED TO PLACE/PERSON, DENIES PAIN, NO SIGNS AND SYMPTOMS OF ACUTE CARDIO RESPIRATORY DISTRESS/SHORTNESS OF BREATH, DENIES CHEST PAIN, NO EDEMA NOTED. AV FISTULA LEFT UPPER ARM, THRILL PALPABLE, BRUIT AUDIBLE, NEXT HEMODIALYSIS 11/14/18. NO REPORT OF GI DISCOMFORT, NO N/V/D. DRESSING INTACT TO SACRAL. SIDE RAILS UP X3/BED IN LOWEST POSITION FOR SAFETY, ENCOURAGED PATIENT TO UTILIZE CALL LIGHT FOR ASSISTANCE, VERBALIZED UNDERSTANDING BY NODDING HEAD, FAMILY AT BEDSIDE. BED ALARM ACTIVATED. NAD.
--- NOTE | 2018-11-13 20:00 | NUR ---
NURSE NOTES: REPOSITIONED PATIENT FOR COMFORT/PRESSURE RELIEF, TOLERATED WELL. NAD.
[2018-11-13] MEDS: Sensipar 30mg Tab ORAL SCH (21:10)
--- NOTE | 2018-11-13 22:00 | NUR ---
NURSE NOTES: FAMILY AT BEDSIDE, REFUSED REPOSITIONING-
[2018-11-14] VITALS (7 sets, daily range): BP systolic 139–170; BP diastolic 60–85
--- NOTE | 2018-11-14 06:38 | NUR ---
NURSE NOTES: RESTED WELL, NO SIGNIFICANT CHANGE OF CONDITION NOTED THROUGHOUT THE NIGHT. SAFETY MAINTAINED. NAD.
--- NOTE | 2018-11-14 07:10 | NUR ---
HAND-OFF: Report given to DONNA SEBASTIAN.
--- NOTE | 2018-11-14 07:52 | NUR ---
NURSE NOTES: Received pt from DONNA JAFFE. Pt is alert and orient x2. pt is in RA. No SOB or acute respiratory distress noted. pt has intact iv acces RFA 22G SL. Pt's son and daughter are on bed side. All needs attended, bed is locked and is in the lowest position. call light within easy reach. will continue to monitor.
--- NOTE | 2018-11-14 10:02 | NUR ---
ST NOTE: SWALLOW STATUS FOLLOWED UP PT'S CONDITIONS. DISCUSSED WITH PEBBLES, MILAD, RE:PT'S CONDITIONS. AND PER RD, PT DOESN'T LIKE THICK SOUP DIET. PT SEEN AT BEDSIDE IN AM. ALERT, AND PT'S DAUGHTER IS ALSO AT BEDSIDE. PER DAUGHTER, BROUGHT FOOD FROM HOME AND PT ATE SOME OF HOME FOOD. PER DAUGHTER, PT DISLIKES CURRENT DIET(THICK SOUP). DISCUSSED WITH DAUGHTER RE:PT'S CONDITIONS. FOR QUALITY OF LIFE, CHANGED DIET TO MOIST PUREE WITH NECTAR THICK LIQUIDS WITH STRICT ASPIRATION PRECAUTIONS WITH 1TO1 FEEDING. OKAY FOR FAMILY TO BRING FOOD. D/W THE STAFF.
--- NOTE | 2018-11-14 10:51 | Nephrology Progress Note ---
Assessment/Plan Problem List: (1) ESRD (end stage renal disease) (2) Acute metabolic encephalopathy (3) Right pulmonary infiltrate on CXR Assessment ESRD M W Fr dialysis- 12 years on dialysis - has left arm fistula Encephalopathy Right basal lung pathology ? Aspiration Muscles wasted DNR Plan BP meds adjusted family considering Hospice meanwhile want dialysis to continue: HD 11/12 next 11/14 PRN Hydralazine for BP stop IV minimize or stop all mind altering meds as possible observe BP off dialysis slow hydrate 2D echo Ej Fx 60 % pulmonary toilet discussed with Dr Mirza Subjective ROS Limited/Unobtainable: No Constitutional: Reports: malaise Objective Objective Last 24 Hour Vital Signs Date Time Temp Pulse Resp B/P (MAP) Pulse Ox O2 Delivery O2 Flow Rate FiO2 11/14/18 08:53 71 153/64 11/14/18 08:00 97.2 71 18 153/64 (93) 97 11/14/18 04:15 76 139/65 (89) 11/14/18 04:00 97.5 77 18 170/85 (113) 98 11/14/18 00:00 98.4 79 18 149/60 (89) 97 11/13/18 21:00 Room Air 11/13/18 20:00 98.4 87 18 159/78 (105) 100 11/13/18 16:30 83 159/64 (95) 11/13/18 16:00 98.4 83 23 165/73 (103) 100 11/13/18 12:00 98.3 79 21 132/68 (89) 100 Intake and Output 11/13/18 11/14/18 19:00 07:00 Intake Total 400 ml 220 ml Balance 400 ml 220 ml Intake Oral 120 ml IV Total 400 ml 100 ml Height (Feet): 5 Height (Inches): 1.00 Weight (Pounds): 90 General Appearance: no apparent distress Cardiovascular: normal rate Respiratory/Chest: decreased breath sounds Abdomen: soft Objective no change Sukumar Varela MD Nov 14, 2018 10:51
--- NOTE | 2018-11-14 12:01 | General Progress Note ---
Assessment/Plan Problem List: (1) Dementia with behavioral disturbance ICD Codes: F03.91 - Unspecified dementia with behavioral disturbance SNOMED: 9288093595913 (2) Acute metabolic encephalopathy ICD Codes: G93.41 - Metabolic encephalopathy SNOMED: 00004726, 779776603 Status: unchanged Assessment/Plan seroquel 25mg po qhs Zoloft 50mg po qam hold seroquel if the pt is lethargic dw both daughters in the room Subjective Neurologic/Psychiatric: Reports: anxiety Allergies: Coded Allergies: No Known Allergies (Unverified , 11/09/18) Subjective the pt sleeping is better cont to be anxious during the day the daughter was in room bp fluctuates no bm since admission Objective Last 24 Hour Vital Signs Date Time Temp Pulse Resp B/P (MAP) Pulse Ox O2 Delivery O2 Flow Rate FiO2 11/14/18 09:00 Room Air 11/14/18 08:53 71 153/64 11/14/18 08:00 97.2 71 18 153/64 (93) 97 11/14/18 04:15 76 139/65 (89) 11/14/18 04:00 97.5 77 18 170/85 (113) 98 11/14/18 00:00 98.4 79 18 149/60 (89) 97 11/13/18 21:00 Room Air 11/13/18 20:00 98.4 87 18 159/78 (105) 100 11/13/18 16:30 83 159/64 (95) 11/13/18 16:00 98.4 83 23 165/73 (103) 100 Intake and Output 11/13/18 11/14/18 19:00 07:00 Intake Total 400 ml 220 ml Balance 400 ml 220 ml Intake Oral 120 ml IV Total 400 ml 100 ml Height (Feet): 5 Height (Inches): 1.00 Weight (Pounds): 90 General Appearance: WD/WN, no apparent distress, alert Neurologic: oriented x 3, responsive, depressed affect Nabor Stone MD Nov 14, 2018 12:01
--- NOTE | 2018-11-14 12:15 | NUR ---
RD ASSESSMENT & RECOMMENDATIONS SEE CARE ACTIVITY FOR COMPLETE ASSESSMENT DAILY ESTIMATED NEEDS: Needs based on ESRD, underweight, 33kg 30-35 kcals/kg 990-1155 total kcals 1-2 g protein/kg 33-66 g total protein Fluid per MD, on HD NUTRITION DIAGNOSIS: Increased kcal and protein needs r/t renal dysfunction as evidenced by pt w/ ESRD on HD CURRENT DIET: Renal, now puree moist PO DIET RECOMMENDATIONS: RENAL DIET (texture per TIMBER WATCHMAN) + NEPRO BID in b/w meals ADDITIONAL RECOMMENDATIONS: 1) Snacks TID 2) RE-calibrate bed scale for accurate CBW -> Conflicting wts: Per daughter 33kg vs Per EMR 41kg 3) F/up w/ WC eval 4) Add NEPRO BID in b/w meals (425 kcal/ 19g pro each) 5) Updated labs as able
--- NOTE | 2018-11-14 12:59 | NUR ---
NURSE NOTES: pt has no appetite and constipation, Dr SANDRA visited pt and he is aware, all orders noted and carried out. will continue to monitor.
[2018-11-14] MEDS ORDERED: Lactulose 10gm/15ml UDC ORAL PRN (13:00)
[2018-11-14] MEDS ORDERED: Docusate 100mg cap ORAL PRN (13:00)
--- NOTE | 2018-11-14 17:49 | NUR ---
CASE MANAGEMENT: REVIEW 11/14/2018 SI: AMS . ESRD ON HD T 97.8 HR 79 RR 19 B/P 144/76 SATS 98% ON RA NO LABS TODAY IS: LEVOFLOXACIN IV Q48HR PROTONIX IV QD D5 NS IVF @50ML/HR MED/SURG STATUS DCP: PATIENT IS FROM HOME
[2018-11-14] MEDS: Megace 400mg/10ml Susp ORAL SCH (18:00)
--- NOTE | 2018-11-14 18:10 | NUR ---
NURSE NOTES: dialysis started at 151 and finished 1809 with 1L out put. pt is stable, V/S stable. will continue to monitor.
--- NOTE | 2018-11-14 19:18 | NUR ---
HAND-OFF: Report given to DONNA AZUL. Endorsed to monitor BP.
--- NOTE | 2018-11-14 20:30 | NUR ---
NURSE NOTES: Received patient awake,verbal,follows simple command,resting in bed,comfortable,relative at bedside.
[2018-11-14] MEDS: Sensipar 30mg Tab ORAL SCH (20:56)
[2018-11-14] MEDS: Sertraline 50mg tab ORAL SCH (20:56)
[2018-11-15] VITALS: BP 156/62
[2018-11-15 04:00] VITALS: BP 118/67
[2018-11-15 07:26] LABS: ALANINE AMINOTRANSFERASE < 6 U/L (12-78); ALBUMIN/GLOBULIN RATIO 0.5 (1.0-2.7); ALKALINE PHOSPHATASE 191 U/L (46-116); ANION GAP 5 mmol/L (5-15); ASPARTATE AMINO TRANSFERASE 16 U/L (15-37); BILIRUBIN,TOTAL 0.8 MG/DL (0.2-1.0); BLOOD UREA NITROGEN 23 mg/dL (7-18); CALCIUM 7.6 MG/DL (8.5-10.1); CARBON DIOXIDE 30 MMOL/L (21-32); CHLORIDE 102 MMOL/L (98-107); CREATININE 3.1 MG/DL (0.55-1.30); PHOSPHORUS 2.9 MG/DL (2.5-4.9); POTASSIUM 3.9 MMOL/L (3.5-5.1); SODIUM 136 MMOL/L (136-145)
[2018-11-15 07:29] LABS: HEMOGLOBIN 10.8 G/DL (12.0-16.0); MEAN CORPUSCULAR VOLUME 106 FL (80-99); PLATELET COUNT 79 K/UL (150-450); RED BLOOD COUNT 3.31 M/UL (4.20-5.40); RED CELL DISTRIBUTION WIDTH 16.3 % (11.6-14.8); WHITE BLOOD COUNT 6.5 K/UL (4.8-10.8)
--- NOTE | 2018-11-15 07:38 | NUR ---
HAND-OFF: Report given to Pillo Brown RN.
[2018-11-15 07:58] VITALS: BP 151/64
[2018-11-15] MEDS: Donepezil 10mg tab ORAL SCH (08:21)
[2018-11-15] MEDS: Megace 400mg/10ml Susp ORAL SCH ×2 (08:21→17:30)
--- NOTE | 2018-11-15 09:44 | NUR ---
NURSE NOTES: pt awake alert , no distress. no sob. call light within reach. will monitor. bed in lowest position, locked. daughter at bedside
--- NOTE | 2018-11-15 11:14 | General Progress Note ---
Assessment/Plan Problem List: (1) Dementia with behavioral disturbance ICD Codes: F03.91 - Unspecified dementia with behavioral disturbance SNOMED: 4233300981354 (2) Acute metabolic encephalopathy ICD Codes: G93.41 - Metabolic encephalopathy SNOMED: 25728989, 075490845 Status: doing well, stable Assessment/Plan Seroquel 25mg po qhs Zoloft 50mg po qam hold Seroquel if the pt is lethargic dw c daughter in the room Subjective Neurologic/Psychiatric: Reports: anxiety, depressed, emotional problems Allergies: Coded Allergies: No Known Allergies (Unverified , 11/09/18) Subjective the pt sleeping is well cont to be anxious the daughter was in room had bm yesterday Objective Last 24 Hour Vital Signs Date Time Temp Pulse Resp B/P (MAP) Pulse Ox O2 Delivery O2 Flow Rate FiO2 11/15/18 09:00 Room Air 11/15/18 08:21 77 151/64 11/15/18 07:58 99.1 77 18 151/64 (93) 98 11/15/18 04:00 99.1 79 18 118/67 (84) 98 11/15/18 00:00 97.0 78 18 156/62 (93) 96 11/14/18 21:48 Room Air 11/14/18 20:56 162/72 11/14/18 20:00 97.9 92 18 162/72 (102) 95 11/14/18 18:00 79 144/76 11/14/18 16:00 97.8 79 19 144/76 (98) 98 11/14/18 12:00 97.6 75 18 148/66 (93) 98 Intake and Output 11/14/18 11/15/18 19:00 07:00 Intake Total 620 ml Balance 620 ml Intake Oral 620 ml # Voids 3 # Bowel Movements 1 Laboratory Tests 11/15/18 06:00: White Blood Count 6.5, Red Blood Count 3.31L, Hemoglobin 10.8L, Hematocrit 35.0L , Mean Corpuscular Volume 106H, Mean Corpuscular Hemoglobin 32.5H, Mean Corpuscular Hemoglobin Concent 30.8L, Red Cell Distribution Width 16.3H, Platelet Count 79L, Mean Platelet Volume 5.8L, Neutrophils (%) (Auto) , Lymphocytes (%) (Auto) , Monocytes (%) (Auto) , Eosinophils (%) (Auto) , Basophils (%) (Auto) , Differential Total Cells Counted 100, Neutrophils % ( Manual) 58, Lymphocytes % (Manual) 12L, Monocytes % (Manual) 7, Eosinophils % ( Manual) 23H, Basophils % (Manual) 0, Band Neutrophils 0, Platelet Estimate DecreasedL, Platelet Morphology Normal, Anisocytosis 1+, Macrocytosis 2+, Sodium Level 136, Potassium Level 3.9, Chloride Level 102, Carbon Dioxide Level 30, Anion Gap 5, Blood Urea Nitrogen 23H, Creatinine 3.1H, Estimat Glomerular Filtration Rate , Glucose Level 83, Calcium Level 7.6L, Phosphorus Level 2.9, Magnesium Level 1.8, Total Bilirubin 0.8, Aspartate Amino Transf (AST/SGOT) 16, Alanine Aminotransferase (ALT/SGPT) < 6L, Alkaline Phosphatase 191H, C-Reactive Protein, Quantitative 5.1H, Pro-B-Type Natriuretic Peptide 37399L, Total Protein 6.2L, Albumin 2.0L, Globulin 4.2, Albumin/Globulin Ratio 0.5L Height (Feet): 5 Height (Inches): 1.00 Weight (Pounds): 90 General Appearance: no apparent distress, alert, cachetic Neurologic: oriented x 3, responsive, depressed affect Nabor Stone MD Nov 15, 2018 11:14
[2018-11-15 12:00] VITALS: BP 145/64
--- NOTE | 2018-11-15 13:22 | General Progress Note ---
Assessment/Plan Assessment/Plan S: Awake O: followup with commands. appears comfortable. PHYSICAL EXAMINATION:HEENT: Atraumatic and normocephalic. CHEST: Diffuse bronchial breathing sounds. HEART: S1 and S2. Regular rate and rhythm. ABDOMEN: Soft. No organomegaly. MUSCULOSKELETAL: Atrophied musculature. NEUROLOGY: The patient is awake, alert, and oriented x1/2. Meds: reviewed, including Seroquel ASSESSMENT AND PLAN: 1. Acute encephalopathy: Resolved 2. Bilateral pulmonary effusion-bilateral pleural effusion, stable, likely Volume over load, less likely infection process 3. End-stage renal disease, on hemodialysis. 4. Hyponatremia. 5. Thrombocytopenia. 6. Cachexia/severe malnourishment. 7. GI and DVT prophylaxis. 8. HTN PLAN OF CARE: Resume Seraquel, per psych input HD, per Dr Varela Family debating over pros/cons of Hospice care Ok to c/w HD for now Start Norvasc 2.5 mg daily Subjective Allergies: Coded Allergies: No Known Allergies (Unverified , 11/09/18) Objective Last 24 Hour Vital Signs Date Time Temp Pulse Resp B/P (MAP) Pulse Ox O2 Delivery O2 Flow Rate FiO2 11/15/18 12:00 98.2 81 18 145/64 (91) 98 11/15/18 09:00 Room Air 11/15/18 08:21 77 151/64 11/15/18 07:58 99.1 77 18 151/64 (93) 98 11/15/18 04:00 99.1 79 18 118/67 (84) 98 11/15/18 00:00 97.0 78 18 156/62 (93) 96 11/14/18 21:48 Room Air 11/14/18 20:56 162/72 11/14/18 20:00 97.9 92 18 162/72 (102) 95 11/14/18 18:00 79 144/76 11/14/18 16:00 97.8 79 19 144/76 (98) 98 Intake and Output 11/14/18 11/15/18 19:00 07:00 Intake Total 620 ml Balance 620 ml Intake Oral 620 ml # Voids 3 # Bowel Movements 1 Laboratory Tests 11/15/18 06:00: White Blood Count 6.5, Red Blood Count 3.31L, Hemoglobin 10.8L, Hematocrit 35.0L , Mean Corpuscular Volume 106H, Mean Corpuscular Hemoglobin 32.5H, Mean Corpuscular Hemoglobin Concent 30.8L, Red Cell Distribution Width 16.3H, Platelet Count 79L, Mean Platelet Volume 5.8L, Neutrophils (%) (Auto) , Lymphocytes (%) (Auto) , Monocytes (%) (Auto) , Eosinophils (%) (Auto) , Basophils (%) (Auto) , Differential Total Cells Counted 100, Neutrophils % ( Manual) 58, Lymphocytes % (Manual) 12L, Monocytes % (Manual) 7, Eosinophils % ( Manual) 23H, Basophils % (Manual) 0, Band Neutrophils 0, Platelet Estimate DecreasedL, Platelet Morphology Normal, Anisocytosis 1+, Macrocytosis 2+, Sodium Level 136, Potassium Level 3.9, Chloride Level 102, Carbon Dioxide Level 30, Anion Gap 5, Blood Urea Nitrogen 23H, Creatinine 3.1H, Estimat Glomerular Filtration Rate , Glucose Level 83, Calcium Level 7.6L, Phosphorus Level 2.9, Magnesium Level 1.8, Total Bilirubin 0.8, Aspartate Amino Transf (AST/SGOT) 16, Alanine Aminotransferase (ALT/SGPT) < 6L, Alkaline Phosphatase 191H, C-Reactive Protein, Quantitative 5.1H, Pro-B-Type Natriuretic Peptide 49435D, Total Protein 6.2L, Albumin 2.0L, Globulin 4.2, Albumin/Globulin Ratio 0.5L Height (Feet): 5 Height (Inches): 1.00 Weight (Pounds): 90 Priscilla Mirza MD Nov 15, 2018 13:22
--- NOTE | 2018-11-15 13:40 | NUR ---
NURSE NOTES: left msg for dr Mirza which meds to continue upon dc (home or hosp meds) , awaiting response.
--- NOTE | 2018-11-15 14:10 | NUR ---
SUPERVISOR FRAME SAMPLE AND PATTERN NOTES SPOKE WITH PATY FROM [facility] FAXED TO [phone]
--- NOTE | 2018-11-15 15:10 | NUR ---
NURSE NOTES: left msg to [facility] if they had a previous home health prior to admission, waiting for call back.
--- NOTE | 2018-11-15 16:09 | NUR ---
NURSE NOTES: spoke to Brenda (daughter) re dc order per daughter, they plan to send her to [facility] with hosp[facility] services, and that she left a voicemail to Dr Mirza per employment case manager, they will talk to daughter as well
[2018-11-15 16:16] VITALS: BP 159/66
--- NOTE | 2018-11-15 19:03 | NUR ---
HAND-OFF: Report given to DENZEL THOMPSON.
--- NOTE | 2018-11-15 19:50 | NUR ---
NURSE NOTES: Received patient awake,verbal,follows simple command,resting in bed,relative at bedside.
[2018-11-15 20:00] VITALS: BP 157/61
--- NOTE | 2018-11-15 21:19 | Nephrology Progress Note ---
Assessment/Plan Problem List: (1) ESRD (end stage renal disease) (2) Acute metabolic encephalopathy (3) Right pulmonary infiltrate on CXR Assessment ESRD M W Fr dialysis- 12 years on dialysis - has left arm fistula Encephalopathy Right basal lung pathology ? Aspiration Muscles wasted DNR Plan BP meds adjusted family considering Hospice meanwhile want dialysis to continue: 11/16 PRN Hydralazine for BP stop IV minimize or stop all mind altering meds as possible observe BP off dialysis slow hydrate 2D echo Ej Fx 60 % pulmonary toilet discussed with Dr Mirza Subjective ROS Limited/Unobtainable: No Constitutional: Reports: malaise Objective Objective Last 24 Hour Vital Signs Date Time Temp Pulse Resp B/P (MAP) Pulse Ox O2 Delivery O2 Flow Rate FiO2 11/15/18 17:31 82 159/66 11/15/18 16:16 98.2 82 18 159/66 (97) 98 11/15/18 12:00 98.2 81 18 145/64 (91) 98 11/15/18 09:00 Room Air 11/15/18 08:21 77 151/64 11/15/18 07:58 99.1 77 18 151/64 (93) 98 11/15/18 04:00 99.1 79 18 118/67 (84) 98 11/15/18 00:00 97.0 78 18 156/62 (93) 96 11/14/18 21:48 Room Air Intake and Output 11/14/18 11/15/18 18:59 06:59 Intake Total 620 ml Balance 620 ml Intake Oral 620 ml # Voids 3 # Bowel Movements 1 Laboratory Tests 11/15/18 06:00: White Blood Count 6.5, Red Blood Count 3.31L, Hemoglobin 10.8L, Hematocrit 35.0L , Mean Corpuscular Volume 106H, Mean Corpuscular Hemoglobin 32.5H, Mean Corpuscular Hemoglobin Concent 30.8L, Red Cell Distribution Width 16.3H, Platelet Count 79L, Mean Platelet Volume 5.8L, Neutrophils (%) (Auto) , Lymphocytes (%) (Auto) , Monocytes (%) (Auto) , Eosinophils (%) (Auto) , Basophils (%) (Auto) , Differential Total Cells Counted 100, Neutrophils % ( Manual) 58, Lymphocytes % (Manual) 12L, Monocytes % (Manual) 7, Eosinophils % ( Manual) 23H, Basophils % (Manual) 0, Band Neutrophils 0, Platelet Estimate DecreasedL, Platelet Morphology Normal, Anisocytosis 1+, Macrocytosis 2+, Sodium Level 136, Potassium Level 3.9, Chloride Level 102, Carbon Dioxide Level 30, Anion Gap 5, Blood Urea Nitrogen 23H, Creatinine 3.1H, Estimat Glomerular Filtration Rate , Glucose Level 83, Calcium Level 7.6L, Phosphorus Level 2.9, Magnesium Level 1.8, Total Bilirubin 0.8, Aspartate Amino Transf (AST/SGOT) 16, Alanine Aminotransferase (ALT/SGPT) < 6L, Alkaline Phosphatase 191H, C-Reactive Protein, Quantitative 5.1H, Pro-B-Type Natriuretic Peptide 66220O, Total Protein 6.2L, Albumin 2.0L, Globulin 4.2, Albumin/Globulin Ratio 0.5L Height (Feet): 5 Height (Inches): 1.00 Weight (Pounds): 90 General Appearance: no apparent distress Cardiovascular: normal rate Respiratory/Chest: decreased breath sounds Abdomen: soft Objective no change Sukumar Varela MD Nov 15, 2018 21:18
[2018-11-15] MEDS: Sensipar 30mg Tab ORAL SCH (21:26)
[2018-11-16] VITALS: BP 159/62
[2018-11-16 04:00] VITALS: BP 155/74
--- NOTE | 2018-11-16 07:23 | NUR ---
HAND-OFF: Report given to Josh Mills RN.
--- NOTE | 2018-11-16 07:35 | NUR ---
received report from DONNA Duarte. patient in bed. alert, verbally responsive. no respiratory distress noted. no c/o pain at this time. the bed in the lowest position. alarm on. call light within reach. will continue to monitor.
[2018-11-16 08:00] VITALS: BP 146/69
[2018-11-16] MEDS: Megace 400mg/10ml Susp ORAL SCH ×2 (09:20→18:32)
[2018-11-16 12:00] VITALS: BP 93/44
--- NOTE | 2018-11-16 12:38 | General Progress Note ---
Assessment/Plan Problem List: (1) Dementia with behavioral disturbance ICD Codes: F03.91 - Unspecified dementia with behavioral disturbance SNOMED: 6145540070497 (2) Acute metabolic encephalopathy ICD Codes: G93.41 - Metabolic encephalopathy SNOMED: 06472327, 547712558 Status: stable Assessment/Plan Seroquel 25mg po qhs Zoloft 50mg po qam hold Seroquel if the pt is lethargic dw c daughter in the room Subjective Neurologic/Psychiatric: Reports: anxiety, depressed Allergies: Coded Allergies: No Known Allergies (Unverified , 11/09/18) Subjective the pt sleeping is well cont to be anxious during the day the daughter was in room and stated that her mom has been getting her zoloft at night instead of day time Objective Last 24 Hour Vital Signs Date Time Temp Pulse Resp B/P (MAP) Pulse Ox O2 Delivery O2 Flow Rate FiO2 11/16/18 12:00 97.0 81 16 93/44 (60) 97 11/16/18 09:20 82 146/69 11/16/18 09:00 Room Air 11/16/18 08:00 97.1 82 16 146/69 (94) 97 11/16/18 04:00 96.8 78 16 155/74 (101) 96 11/16/18 00:00 97.0 76 16 159/62 (94) 97 11/15/18 21:00 Room Air 11/15/18 20:00 97.7 80 16 157/61 (93) 95 11/15/18 17:31 82 159/66 11/15/18 16:16 98.2 82 18 159/66 (97) 98 Intake and Output 11/15/18 11/16/18 19:00 07:00 Intake Total 480 ml 220 ml Balance 480 ml 220 ml Intake Oral 480 ml 120 ml IV Total 100 ml # Voids 1 1 Height (Feet): 5 Height (Inches): 1.00 Weight (Pounds): 92 General Appearance: no apparent distress, alert, thin Neurologic: oriented x 3, responsive, depressed affect Nabor Stone MD Nov 16, 2018 12:38
[2018-11-16] MEDS: Sertraline 50mg tab ORAL SCH (14:22)
[2018-11-16 16:00] VITALS: BP 149/69
[2018-11-16] MEDS ORDERED: D5NS 1000ml IV ONE (16:38)
[2018-11-16] MEDS ORDERED: Tubing IV Secondary IV ONE (16:38)
--- NOTE | 2018-11-16 17:38 | Nephrology Progress Note ---
Assessment/Plan Problem List: (1) ESRD (end stage renal disease) (2) Acute metabolic encephalopathy (3) Right pulmonary infiltrate on CXR Assessment ESRD M W Fr dialysis- 12 years on dialysis - has left arm fistula Encephalopathy Right basal lung pathology ? Aspiration Muscles wasted DNR Plan BP meds adjusted family considering Hospice meanwhile want dialysis to continue: 11/16- seen during HD stable PRN Hydralazine for BP stop IV minimize or stop all mind altering meds as possible observe BP off dialysis slow hydrate 2D echo Ej Fx 60 % pulmonary toilet discussed with Dr Mirza Subjective ROS Limited/Unobtainable: No Objective Objective Last 24 Hour Vital Signs Date Time Temp Pulse Resp B/P (MAP) Pulse Ox O2 Delivery O2 Flow Rate FiO2 11/16/18 12:00 97.0 81 16 93/44 (60) 97 11/16/18 09:20 82 146/69 11/16/18 09:00 Room Air 11/16/18 08:00 97.1 82 16 146/69 (94) 97 11/16/18 04:00 96.8 78 16 155/74 (101) 96 11/16/18 00:00 97.0 76 16 159/62 (94) 97 11/15/18 21:00 Room Air 11/15/18 20:00 97.7 80 16 157/61 (93) 95 Intake and Output 11/15/18 11/16/18 19:00 07:00 Intake Total 480 ml 220 ml Balance 480 ml 220 ml Intake Oral 480 ml 120 ml IV Total 100 ml # Voids 1 1 Height (Feet): 5 Height (Inches): 1.00 Weight (Pounds): 92 General Appearance: no apparent distress Cardiovascular: normal rate Respiratory/Chest: decreased breath sounds Abdomen: soft Objective no change Sukumar Varela MD Nov 16, 2018 17:38
--- NOTE | 2018-11-16 18:40 | General Progress Note ---
Assessment/Plan Assessment/Plan S: Awake O: followup with commands. appears comfortable. PHYSICAL EXAMINATION:HEENT: Atraumatic and normocephalic. CHEST: Diffuse bronchial breathing sounds. HEART: S1 and S2. Regular rate and rhythm. ABDOMEN: Soft. No organomegaly. MUSCULOSKELETAL: Atrophied musculature. NEUROLOGY: The patient is awake, alert, and oriented x1/2. Meds: reviewed, including Seroquel ASSESSMENT AND PLAN: 1. Acute encephalopathy: Resolved 2. Bilateral pulmonary effusion-bilateral pleural effusion, stable, likely Volume over load, less likely infection process 3. End-stage renal disease, on hemodialysis. 4. Hyponatremia. 5. Thrombocytopenia. 6. Cachexia/severe malnourishment. 7. GI and DVT prophylaxis. 8. HTN PLAN OF CARE: Resume Seraquel, per psych input HD, per Dr Varela Family looking into options for placement. Start Norvasc 2.5 mg daily D/w daughter yesterday Subjective Allergies: Coded Allergies: No Known Allergies (Unverified , 11/09/18) Objective Last 24 Hour Vital Signs Date Time Temp Pulse Resp B/P (MAP) Pulse Ox O2 Delivery O2 Flow Rate FiO2 11/16/18 18:00 87 149/68 11/16/18 12:00 97.0 81 16 93/44 (60) 97 11/16/18 09:20 82 146/69 11/16/18 09:00 Room Air 11/16/18 08:00 97.1 82 16 146/69 (94) 97 11/16/18 04:00 96.8 78 16 155/74 (101) 96 11/16/18 00:00 97.0 76 16 159/62 (94) 97 11/15/18 21:00 Room Air 11/15/18 20:00 97.7 80 16 157/61 (93) 95 Intake and Output 11/15/18 11/16/18 18:59 06:59 Intake Total 480 ml 220 ml Balance 480 ml 220 ml Intake Oral 480 ml 120 ml IV Total 100 ml # Voids 1 1 Height (Feet): 5 Height (Inches): 1.00 Weight (Pounds): 92 Priscilla Mirza MD Nov 16, 2018 18:40
--- NOTE | 2018-11-16 18:57 | NUR ---
CASE MANAGEMENT: REVIEW SI: AMS . ESRD ON HD T 97.0 HR 82 RR 16 BP 146/69 SAT 97% ROOM AIR IS: LEVOFLOXACIN IV Q48HR PROTONIX IV QD D5 NS IVF @50ML/HR MED/SURG STATUS DCP: PATIENT IS FROM HOME
--- NOTE | 2018-11-16 19:08 | NUR ---
HAND-OFF: Report given to DONNA Duarte.
[2018-11-16 20:00] VITALS: BP 130/59
--- NOTE | 2018-11-16 20:04 | NUR ---
NURSE NOTES: Received patient awake,verbal,follows simple command,no complaints,relatives at bedside.
[2018-11-16] MEDS: Sensipar 30mg Tab ORAL SCH (21:05)
[2018-11-17] VITALS: BP 124/58
[2018-11-17 04:00] VITALS: BP 143/64
--- NOTE | 2018-11-17 07:00 | NUR ---
HAND-OFF: Report given to Fabio Mills RN[].
--- NOTE | 2018-11-17 07:10 | NUR ---
NURSE NOTES: Received report from DONNA Duarte. patient in bed. alert. verbally responsive. no respiratory distress noted. no c/o pain at this time. bed in the lowest position. alarm on, call light within reach. will continue to monitor.
[2018-11-17 08:00] VITALS: BP 144/67
[2018-11-17] MEDS: Megace 400mg/10ml Susp ORAL SCH (09:00)
[2018-11-17] MEDS: Donepezil 10mg tab ORAL SCH (09:00)
[2018-11-17] MEDS: Sertraline 50mg tab ORAL SCH (09:00)
--- NOTE | 2018-11-17 10:01 | NUR ---
*-* CELLOPHANE BAG MACHINE OPERATOR NOTES *-* RECEIVED A CALL FROM LAURA FROM [facility] SHE HAS FOUND A BED FOR PATIENT AT "[address] THEY HAVE SET REAL ESTATE ASSET MANAGER AT 1PM THEY HAVE ALSO ORDER DME TO BE DELIVERED STAT WITH 2 HRS
--- NOTE | 2018-11-17 11:05 | General Progress Note ---
Assessment/Plan Problem List: (1) Dementia with behavioral disturbance ICD Codes: F03.91 - Unspecified dementia with behavioral disturbance SNOMED: 8347761019820 (2) Acute metabolic encephalopathy ICD Codes: G93.41 - Metabolic encephalopathy SNOMED: 31082071, 103656273 Status: stable Assessment/Plan Seroquel 25mg po qhs Zoloft 50mg po qam hold Seroquel if the pt is lethargic dw c daughter in the room Subjective Neurologic/Psychiatric: Reports: anxiety Allergies: Coded Allergies: No Known Allergies (Unverified , 11/09/18) Subjective the pt didnt sleep last night per daughter cont to be anxious during the day the daughter was in room the daughter was reluctant to increase the Seroquel Objective Last 24 Hour Vital Signs Date Time Temp Pulse Resp B/P (MAP) Pulse Ox O2 Delivery O2 Flow Rate FiO2 11/17/18 09:00 83 144/67 11/17/18 09:00 Room Air 11/17/18 08:00 99.0 83 20 144/67 (92) 99 11/17/18 04:00 98.4 84 18 143/64 (90) 98 11/17/18 00:00 98.0 82 18 124/58 (80) 98 11/16/18 21:00 Room Air 11/16/18 20:00 98.3 87 16 130/59 (82) 98 11/16/18 18:00 87 149/68 11/16/18 16:00 98.4 87 20 149/69 (95) 97 11/16/18 12:00 97.0 81 16 93/44 (60) 97 Intake and Output 11/16/18 11/17/18 19:00 07:00 Intake Total 240 ml Output Total 1000 ml 200 ml Balance -760 ml -200 ml Intake Oral 240 ml Output Urine Total 200 ml Hemodialysis UF 1000 ml Height (Feet): 5 Height (Inches): 1.00 Weight (Pounds): 92 General Appearance: WD/WN, no apparent distress, alert, thin Neurologic: responsive, depressed affect Nabor Stone MD Nov 17, 2018 11:05
[2018-11-17] MEDS ORDERED: MEGACE ORA400 MG/10 ORAL (11:50)
[2018-11-17] MEDS ORDERED: NORVASC5 MG ORAL (11:50)
[2018-11-17] MEDS ORDERED: ACETAMINOPHEN325 M1 ORAL (11:50)
[2018-11-17] MEDS ORDERED: SENSIPAR30 MG ORAL (11:50)
[2018-11-17] MEDS ORDERED: ZOLOFT50 MG ORAL (11:50)
[2018-11-17] MEDS ORDERED: Lactulose ORAL (11:50)
[2018-11-17] MEDS ORDERED: SEROQUEL25 MG ORAL (11:50)
[2018-11-17] MEDS ORDERED: APRESOLINE10 MG ORAL (11:50)
[2018-11-17] MEDS ORDERED: DOK100 M1 ORAL (11:50)
[2018-11-17 12:00] VITALS: BP 119/54
--- NOTE | 2018-11-17 12:10 | NUR ---
NURSE NOTES:WOUND CARE NOTES:Pt presented on admission with sacral brownish discoloration without induration or tenderness .Skin is dry with scattered shearing noted .Pt denied pain when area palpated. BIlat heels are dry and blanchable .No other skin concerns noted. Tx.plan:Apply Moisture Barrier Paste with each perineal care. Reposition at least every 2hours or as tolerated. Off-load heels with pillow.
--- NOTE | 2018-11-17 12:49 | NUR ---
*-* DISCHARGE PLANNING *--* PATIENT HAS BEEN REFERRED TO: [facility] P:[phone] F:[phone]
--- NOTE | 2018-11-17 14:01 | NUR ---
NURSE NOTES: given admission report to Lola campbell, spoke to DONNA Patino.
--- NOTE | 2018-11-17 14:50 | Nephrology Progress Note ---
Assessment/Plan Problem List: (1) ESRD (end stage renal disease) (2) Acute metabolic encephalopathy (3) Right pulmonary infiltrate on CXR Assessment ESRD M W Fr dialysis- 12 years on dialysis - has left arm fistula Encephalopathy Right basal lung pathology ? Aspiration Muscles wasted DNR Plan BP meds adjusted family considering Hospice meanwhile want dialysis to continue: next 11/18 if in house PRN Hydralazine for BP stop IV minimize or stop all mind altering meds as possible observe BP off dialysis slow hydrate 2D echo Ej Fx 60 % pulmonary toilet discussed with Dr Mirza Subjective ROS Limited/Unobtainable: No Objective Objective Last 24 Hour Vital Signs Date Time Temp Pulse Resp B/P (MAP) Pulse Ox O2 Delivery O2 Flow Rate FiO2 11/17/18 12:00 97.4 88 20 119/54 (75) 98 11/17/18 09:00 83 144/67 11/17/18 09:00 Room Air 11/17/18 08:00 99.0 83 20 144/67 (92) 99 11/17/18 04:00 98.4 84 18 143/64 (90) 98 11/17/18 00:00 98.0 82 18 124/58 (80) 98 11/16/18 21:00 Room Air 11/16/18 20:00 98.3 87 16 130/59 (82) 98 11/16/18 18:00 87 149/68 11/16/18 16:00 98.4 87 20 149/69 (95) 97 Intake and Output 11/16/18 11/17/18 19:00 07:00 Intake Total 240 ml Output Total 1000 ml 200 ml Balance -760 ml -200 ml Intake Oral 240 ml Output Urine Total 200 ml Hemodialysis UF 1000 ml Height (Feet): 5 Height (Inches): 1.00 Weight (Pounds): 92 General Appearance: no apparent distress Cardiovascular: tachycardia Respiratory/Chest: decreased breath sounds Abdomen: soft Objective no change Sukumar Varela MD Nov 17, 2018 14:50
--- NOTE | 2018-11-17 15:22 | NUR ---
RD ASSESSMENT & RECOMMENDATIONS SEE CARE ACTIVITY FOR COMPLETE ASSESSMENT DAILY ESTIMATED NEEDS: Needs based on ESRD, underweight, 33kg 30-35 kcals/kg 990-1155 total kcals 1-2 g protein/kg 33-66 g total protein Fluid per MD, on HD mL/kg total fluid mLs NUTRITION DIAGNOSIS: Increased kcal and protein needs r/t renal dysfunction as evidenced by pt w/ ESRD on HD CURRENT DIET:Renal, puree moist PO DIET RECOMMENDATIONS: RENAL DIET (texture per LABELING ASSOCIATE) + NEPRO BID in b/w meals ADDITIONAL RECOMMENDATIONS: 1) Snacks TID 2) RE-calibrate bed scale for accurate CBW 3) Add NEPRO BID in b/w meals (425 kcal/ 19g pro each) 4) Updated labs as able .
--- NOTE | 2018-11-17 15:24 | NUR ---
*-* DISCHARGE PLANNED *-* PATIENT IS DISCHARGED TO: [facility] ROOM# 107-A SKILLED T:[phone] FOR NURSE TO NURSE REPORT [facility] HAS BEEN ARRANGED FOR SCOUT EXECUTIVE AT [address] [id number]
--- NOTE | 2018-11-17 15:50 | NUR ---
NURSE NOTES: patient discharged to [facility] via ambulance with fair condition. alert. oriented. verbally responsive. no respiratory distress noted. no c/o pain at this time. IV and ID band removed. checked the belonging with Abiola/daughter and obtained sign. given report to ambulance person. all needs attended.
--- NOTE | 2018-11-18 14:45 | Discharge Summary ---
Discharge Summary Discharge Summary _ DATE OF ADMISSION: 11/09/2018 DATE OF DISCHARGE: 11/17/2018 DISCHARGED BY: Dr. Priscilla Mirza CONSULTANTS: Dr. Sukumar Stone BRIEF HOSPITAL COURSE: Patient is an 83-year-old female, history of end-stage renal disease. The patient presented with worsening shortness of breath and was less responsive. She was brought in by EMS from home. Per family, patient was more altered than baseline. She was complete hemodialysis session prior to coming to ED. She was DNR. On evaluation at ED, blood pressure was 98/56, pulse rate 86 she was saturating 94% on room air. Blood work did not show any leukocytosis, hemoglobin and hematocrit were stable. Potassium 4.5. Creatinine 2.3. Troponin was negative. She had an EKG that showed normal sinus rhythm with no acute changes. Chest x-ray showed right-sided effusion. 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 She was then admitted for evaluation of acute encephalopathy and pleural effusion. Antipsychotic medications/sedatives were placed on hold. She was placed on frequent neuro check. Psychiatrist was consulted. She was placed on Seroquel and Zoloft. Dividend Clerk was consulted for inpatient hemodialysis. Patient had been on dialysis for 12 years and has a left arm AV fistula. Family was debating over pros/cons of hospice; family wanted dialysis to continue. Repeat chest x-ray the following day showed interstitial opacities likely due to mild interstitial edema or CHF. She was given empirically levofloxacin. Blood pressure was monitored. She was given amlodipine. There was noted thrombocytopenia. She was off antiplatelet medications. There was no bleeding noted. She was eventually discharged to a skilled nursing. FINAL DIAGNOSES: Acute metabolic encephalopathy, resolved Bilateral pleural effusion, stable, likely volume overload, less likely infectious process End-stage renal disease, on hemodialysis Hyponatremia Thrombocytopenia Cachexia/severe protein calorie malnourishment Hypertension Right basal lung pathology, questionable aspiration DNR Dementia with behavioral disturbance DISPOSITION: Patient was discharged to [facility]. DISCHARGE MEDICATIONS: Refer to Discharge Medication List. I have been assigned to complete a discharge summary on this account, I was not involved with the patient's management. Belkis Upton NP Nov 18, 2018 14:45
== END 2018-11-17 16:25 | DRG 640 ==
LOC: EDBD 21:19 → EMR 22:00 → 4E 23:32 → EDBEDREQ 11-10 00:27
PROC: 5A1D70Z Performance of Urinary Filtration, Intermittent, Less than 6 Hours Per Day (ICD-10-PCS; principal; 2018-11-12)
DX: E87.70 Fluid overload, unspecified (principal); E43 Unspecified severe protein-calorie malnutrition; N18.6 End stage renal disease; G93.41 Metabolic encephalopathy; J90 Pleural effusion, not elsewhere classified; Z94.0 Kidney transplant status; I12.0 Hypertensive chronic kidney disease with stage 5 chronic kidney disease or end stage renal disease; F03.91 Unspecified dementia, unspecified severity, with behavioral disturbance; E87.1 Hypo-osmolality and hyponatremia; Z99.2 Dependence on renal dialysis; D69.6 Thrombocytopenia, unspecified; Z66 Do not resuscitate
CPT/HCPCS: 36415; 70450; 71045; 71046; 74230; 80053; 80061; 82140; 82533; 82550; 82553; 82607; 82728; 82746; 82977; 83540; 83550; 83605; 83735; 83880; 84100; 84443; 84484; 84550; 85007; 85025; 86140; 87040; 93005; 93306; 96365; 99285